=== PATIENT | female | born 1930 | race Caucasian/White ===

== ENCOUNTER 2019-05-23 22:54 | Emergency (ER) | payer MEDICARE, BC ==
[2019-05-23 23:00] VITALS: RESP 18
[2019-05-24 01:05] LABS: Appearance,Urine Clear (Clear); Bilirubin,Urine Negative (Negative); Blood,Urine Negative (Negative); Color,Urine Light Yellow; Glucose,Urine (UA) Negative (Negative); Ketones,Urine 1+ (Negative); Leukocyte Esterase,Urine Moderate (Negative); Nitrite,Urine Negative (Negative); Protein,Urine Negative (Negative); RBC,Urine 1 /hpf (0-5); Specific Gravity,Urine 1.008 (1.001-1.035); Squamous Epithelial Cell,Urine <1 /hpf (0-4); Urobilinogen,Urine <2.0 mg/dL (<2.0); WBC,Urine 5 /hpf (0-5)
--- NOTE | 2019-05-24 01:10 | ED ---
General Adult HPI - General Chief complaint: Recheck/Abnormal Lab/Rx Stated complaint: High Blood Pressure Time Seen by Provider: 05/23/19 23:02 Source: patient, RN notes reviewed, old records reviewed Mode of arrival: ambulatory Limitations: no limitations - History of Present Illness Initial comments: 88-year-old female patient past medical history of hypothyroidism presents ED chief complaint of hypertension. Patient monitors her blood pressure in a regular basis daily. Patient reports her blood pressure is higher today. Reports that it was 200/100 home. Patient denies any other complaints. Denies any headache, changes in vision, nausea vomiting diarrhea. Denies any chest pain short of breath. Patient presents to ED for evaluation. Systemic: Pt denies fatigue, fever/chills, rash. Pt denies weakness, night sweats, weight loss. Neuro: Pt denies headache, visual disturbances, syncope or pre-syncope. HEENT: Pt denies ocular discharge or irritation, otalgia, rhinorrhea, pharyngitis or notable lymphadenopathy. Cardiopulmonary: Pt denies chest pain, SOB, heart palpitations, dyspnea on exertion. Abdominal/GI: Pt denies abdominal pain, n/v/d. : Pt denies dysuria, burning w/ urination, frequency/urgency. Denies new onset urinary or bowel incontinence. MSK: Pt denies myalgia, loss of strength or function in extremities. Neuro: Pt denies new onset weakness, paresthesias. - Related Data Home Medications Medication Instructions Recorded Confirmed Levothyroxine Sodium [Levoxyl] 50 mcg PO SUTUTH 05/25/15 05/23/19 Levothyroxine Sodium [Levoxyl] 100 mcg PO MOWEFRSA 05/25/15 05/23/19 Lutein 10 mg PO DAILY 05/25/15 05/23/19 Allergies Allergy/AdvReac Type Severity Reaction Status Date / Time No Known Allergies Allergy Verified 05/23/19 23:15 Review of Systems ROS Statement: Those systems with pertinent positive or pertinent negative responses have been documented in the HPI. ROS Other: All systems not noted in ROS Statement are negative. Past Medical History Past Medical History: Thyroid Disorder Additional Past Medical History / Comment(s): macular degeneration History of Any Multi-Drug Resistant Organisms: None Reported Additional Past Surgical History / Comment(s): thyroidectomy Past Psychological History: No Psychological Hx Reported Smoking Status: Former smoker Past Alcohol Use History: Daily Past Drug Use History: None Reported General Exam - General Exam Comments Initial Comments: Constitutional: NAD, AOX3, Pt has pleasant affect. HEENT: NC/AT, trachea midline, neck supple, no lymphadenopathy. Posterior pharynx non erythematous, without exudates. External ears appear normal, without discharge. Mucous membranes moist. Eyes PERRLA, EOM intact. There is no scleral icterus. No pallor noted. Cardiopulmonary: RRR, no murmurs, rubs or gallops, no JVD noted. Lungs CTAB in anterior and posterior montes. No peripheral edema. Abdominal exam: Abdomen soft and non-distended. Abdomen non-tender to palpation in all 4 quadrants. Bowel sounds active in LLQ. No hepatosplenomegaly. No ecchymosis Neuro: CN II-XII intact. No nuchal rigidity. No raccon eyes, no chinchilla sign, no hemotympanum. No cervical spinal tenderness. MSK: No posterior calf tenderness bilaterally, homans sign negative bilaterally. Posterior tibialis and radial pulse +2 bilaterally. Sensation intact in upper and lower extremities. Full active ROM in upper and lower extremities, 5/5 stregnth. 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 Patient will signs the displayed hypertension. Physical exam is acute pathology. Neurologic exam within normal limits 2. Major 0. Patient was offered recommended investigations including CT, laboratory investigations. Patient Paulson all of which except urinalysis. Urinalysis was unremarkable. Patient blood pressure decreased without intervention. Patient will be discharged, follow up with primary care provider for further evaluation. Return to ER physician worsens. Case discussed and pt seen by Dr. Barr. - Lab Data Lab Results 05/24/19 Range/Units 00:01 Urine Color Light Yellow Urine Appearance Clear (Clear) Urine pH 7.0 (5.0-8.0) Ur Specific [place] 1.008 (1.001-1.035) Urine Protein Negative (Negative) Urine Glucose (UA) Negative (Negative) Urine Ketones 1+ H (Negative) Urine Blood Negative (Negative) Urine Nitrite Negative (Negative) Urine Bilirubin Negative (Negative) Urine Urobilinogen <2.0 (<2.0) mg/dL Ur Leukocyte Esterase Moderate H (Negative) Urine RBC 1 (0-5) /hpf Urine WBC 5 (0-5) /hpf Ur Squamous Epith Cells <1 (0-4) /hpf Disposition Clinical Impression: Asymptomatic hypertension Disposition: HOME SELF-CARE Condition: Stable Instructions (If sedation given, give patient instructions): Hypertension (ED) Additional Instructions: Patient to adhere to previously discussed treatment plan and will take medication(s) as directed. Patient to follow up with PCP in 1-2 days. Patient to return to ED if symptoms do not improve. Follow with primary care provider tomorrow. Return to ER physician worsens. Is patient prescribed a controlled substance at d/c from ED?: No Referrals: Earl Bahsir DO [Primary Care Provider] - 1-2 days
[2019-05-24 01:25] VITALS: BP 185/93; PULSE 62; TEMP 98
== END 2019-05-24 01:27 | disposition home or self-care (01) ==
LOC: EC 22:54
DX: I10 Essential (primary) hypertension (principal); E03.9 Hypothyroidism, unspecified; H35.30 Unspecified macular degeneration; Z79.890 Hormone replacement therapy; Z79.899 Other long term (current) drug therapy; Z87.891 Personal history of nicotine dependence; Z90.89 Acquired absence of other organs
CPT/HCPCS: 81001; 87086; 99284

== ENCOUNTER 2020-06-14 20:28 | Observation (INO) | payer MEDICARE, BC ==
[2020-06-14 21:02] LABS: Basophils # (A) 0.1 k/uL (0-0.2); Basophils % (A) 1 %; Eosinophils # (A) 0.2 k/uL (0-0.7); Eosinophils % (A) 3 %; HCT 40.2 % (34.0-46.0); HGB 13.5 gm/dL (11.4-16.0); Lymphocytes # (A) 1.3 k/uL (1.0-4.8); Lymphocytes % (A) 17 %; MCH 31.1 pg (25.0-35.0); MCHC 33.5 g/dL (31.0-37.0); MCV 92.6 fL (80.0-100.0); Mean Platelet Volume 7.2; Monocytes # (A) 0.5 k/uL (0-1.0); Monocytes % (A) 6 %; Neutrophils # (A) 5.3 k/uL (1.3-7.7); Neutrophils % (A) 71 %; Platelet Count 192 k/uL (150-450); RBC 4.34 m/uL (3.80-5.40); RDW 12.6 % (11.5-15.5); WBC 7.5 k/uL (3.8-10.6)
[2020-06-14 21:09] LABS: ALT 37 U/L (4-34); AST 35 U/L (14-36); African American GFR (CKD) >90 (>60 ml/min/1.73 sqM); Albumin 4.3 g/dL (3.5-5.0); Alkaline Phosphatase 76 U/L (38-126); Anion Gap 7 mmol/L; Blood Urea Nitrogen 14 mg/dL (7-17); Calcium 8.8 mg/dL (8.4-10.2); Carbon Dioxide 26 mmol/L (22-30); Chloride 97 mmol/L (98-107); Glucose 109 mg/dL (74-99); Magnesium 2.1 mg/dL (1.6-2.3); Non-African American GFR(CKD) 83 (>60 ml/min/1.73 sqM); Sodium 130 mmol/L (137-145); Total Bilirubin 0.6 mg/dL (0.2-1.3); Total Protein 6.6 g/dL (6.3-8.2)
[2020-06-14 21:29] LABS: Partial Thromboplastin Time 23.8 sec (22.0-30.0); Prothrombin Time 10.6 sec (9.0-12.0)
[2020-06-14] MEDS ORDERED: NALOXONE 0.4 MG/ML 1 ML VIAL IV PRN (21:33)
--- NOTE | 2020-06-14 21:39 | ED ---
Chest Pain HPI - General Source: EMS Mode of arrival: EMS Limitations: no limitations <Yoselin Hauser - Last Filed: 06/14/20 22:03> <Ellyn Cortes - Last Filed: 06/18/20 23:27> - General Chief Complaint: Chest Pain Stated Complaint: chest pain Time Seen by Provider: 06/14/20 20:47 - History of Present Illness Initial Comments: a 9-year-old female presenting today for chief complaint of episode of chest pain that began at 7 PM. Patient states at 7 PM she had a aching throbbing chest pain. She states that it was in the middle to left side of her chest. She states she has no history of chest pain she has no history of coronary artery disease or heart issues that she is aware of. She sits a few weeks ago she was diagnosed with hypertension and prescribed for pills. Patient denies diabetes she states she had a previous smoking history 60 years ago for about 10 years. Patient denies any jaw pain arm pain and paresthesias she denies any presyncope ripping tearing back pain or pain with deep inspiration she denies any leg swelling or active cancer. Patient states that the onset of the chest pain she did take one day or 325 mg aspirin. Patient sates she was given a nitroglycerin en route. Patient states that the pain had been subsided since she arrived in the emergency department. She has no additional complaints upon arrival patient appears well she is in good spirits symptom free. (Yoselin Hauser) - Related Data Home Medications Medication Instructions Recorded Confirmed Levothyroxine Sodium [Levoxyl] 100 mcg PO MOWEFRSA@0600 05/25/15 06/16/20 Lutein 10 mg PO DAILY@1300 05/25/15 06/16/20 Losartan Potassium 100 mg PO DAILY@0830 06/14/20 06/16/20 amLODIPine [Norvasc] 10 mg PO DAILY@0906/14/20 06/16/20 Levothyroxine Sodium [Levoxyl] 50 mcg PO SUTUTH@0606/16/20 06/16/20 Previous Rx's Medication Instructions Recorded Metoprolol Tartrate [Lopressor] 25 mg PO BID #60 tab 06/18/20 hydrALAZINE HCL [Apresoline] 50 mg PO TID #90 tab 06/18/20 Allergies Allergy/AdvReac Type Severity Reaction Status Date / Time No Known Allergies Allergy Verified 06/16/20 15:22 Review of Systems ROS Other: All systems not noted in ROS Statement are negative. <JustinjuanYoselin L - Last Filed: 06/14/20 22:03> ROS Other: All systems not noted in ROS Statement are negative. <Ellyn Cortes - Last Filed: 06/18/20 23:27> ROS Statement: Those systems with pertinent positive or pertinent negative responses have been documented in the HPI. EKG Findings - EKG Comments: EKG Findings:: ventricular rate 50 bpm, WA interval 172 ms, QRS duration 112 ms, QT/QTC 428/390 ms. This is less bradycardia. There is no specific ST elevation or depression or T-wave inversions. <JustinYoselin martinez - Last Filed: 06/14/20 22:03> Past Medical History Past Medical History: Hypertension, Thyroid Disorder Additional Past Medical History / Comment(s): macular degeneration History of Any Multi-Drug Resistant Organisms: None Reported Past Surgical History: No Surgical Hx Reported Additional Past Surgical History / Comment(s): thyroidectomy Past Psychological History: Anxiety Smoking Status: Never smoker Past Alcohol Use History: Occasional Past Drug Use History: None Reported <Yoselin Hauser - Last Filed: 06/14/20 22:03> General Exam Limitations: no limitations <JustinjuanYoselin L - Last Filed: 06/14/20 22:03> Course Vital Signs 06/14/20 06/14/20 20:31 21:30 Temperature 97.8 F Pulse Rate 54 L 47 L Respiratory 18 18 Rate Blood Pressure 118/91 134/67 O2 Sat by Pulse 97 98 Oximetry Chest Pain MDM <JustinjuanYoselin L - Last Filed: 06/14/20 22:03> <Ellyn Cortes - Last Filed: 06/18/20 23:27> - MDM 89-year-old female presenting today for chief complaint of chest pain resolved on arrival. Patient was given aspirin and nitroglycerin prior to arrival. EKGwith findings. Initial troponin negative. Chest x-ray clear. Patient does have a slight murmur on examination. No leg swelling. She denies sharp pleuritic chest pain. This imaging feel patient is stable to be transferred inpatient for serial troponins and further monitoring on telemetry. Patient agreeable to admission and care plan.Dr. Cortes agreeable to care plan . (Yoselin Hauser) I was available for consultation in the emergency department. The history and physical exam were done by the midlevel provider. I was consulted for this patients care. I reviewed the case with the midlevel provider and based on their presentation of the patient, I agree with the assessment, medical decision making and plan of care as documented. Chart was dictated using [employer] dictation software. Attempts were made to correct any dictation errors however some typographical errors may persist. Patient was seen during a national state of emergency due to the Covid-19 pandemic. (Ellyn Cortes) Disposition Is patient prescribed a controlled substance at d/c from ED?: No Time of Disposition: 21:39 <Yoselin Hauser - Last Filed: 06/14/20 22:03> <Ellyn Cortes - Last Filed: 06/18/20 23:27> Clinical Impression: Chest pain, Hyponatremia Disposition: ADMITTED IP TO THIS HOSP Condition: Stable
--- NOTE | 2020-06-14 22:03 | XR ---
EXAMINATION TYPE: XR chest 2V DATE OF EXAM: 06/14/2020 COMPARISON: 05/25/2015 HISTORY: Chest pain TECHNIQUE: 2 views FINDINGS: There is large hiatal hernia. Heart is enlarged. There is no heart failure. There is minima l pleural reaction left lung base. The right lung is clear. There are chest leads. Bony thorax is int act. IMPRESSION: Mild cardiomegaly. Heart appears increased slightly compared to old exam. Large hiatal he rnia. Minimal pleural fluid or reaction at the left lung base increased compared to old exam.
[2020-06-15] MEDS ORDERED: hydrALAZINE HCL 20 MG/ML 1 ML VIAL IVP PRN
[2020-06-15] MEDS ORDERED: LEVOTHYROXINE 100 MCG TAB PO SCH (06:30)
[2020-06-15 08:02] VITALS: RESP 16; TEMP 97.4
[2020-06-15] MEDS ORDERED: AMINOPHYLLINE 500 MG/20 ML VIAL IV PRN (08:31)
[2020-06-15] MEDS ORDERED: REGADENOSON 0.4 MG/5 ML SYRINGE IV ONE (08:31)
[2020-06-15] MEDS ORDERED: CAFFEINE CITRATE 60 MG/3 ML VIAL IV PRN (08:31)
[2020-06-15] MEDS ORDERED: FAMOTIDINE 20 MG/2 ML VIAL IV SCH (09:00)
[2020-06-15] MEDS ORDERED: amLODIPine 10 MG TAB PO SCH (09:00)
[2020-06-15] MEDS ORDERED: LOSARTAN 50 MG TAB PO SCH (09:00)
[2020-06-15] MEDS ORDERED: hydrALAZINE HCL 25 MG TAB PO SCH (09:00)
[2020-06-15] MEDS ORDERED: hydroCHLOROthiazide 25 MG TAB PO SCH (09:00)
[2020-06-15] MEDS ORDERED: VIT A,C & E-LUTEIN-MINERALS 1 EACH TAB PO SCH (09:00)
[2020-06-15] MEDS ORDERED: HEPARIN SODIUM,PORCINE 5,000 UNIT/ML 1 ML VIAL SQ SCH (09:00)
--- NOTE | 2020-06-15 10:27 | P.CRDCN ---
History of Present Illness Consult date: 06/15/20 Chief complaint: Chest pain History of present illness: This is a very pleasant 89-year-old female patient with a past medical history significant for hypertension presented to the hospital complaining of chest discomfort which she was in her usual state of health yesterday when she was sitting at home and started experiencing discomfort in the epigastric area. She described the discomfort as a tightness without any radiation to the arms or neck or shoulders and without any radiation to the neck or the jaw and without any assistive symptoms of shortness of breath or sweating or dizziness or syncope. During her hospital stay she did have another episode of chest tightness/epigastric discomfort. The EKG showed sinus rhythm without any significant ST or T-wave abnormalities. 3 sets of cardiac enzymes were checked and came in to be unremarkable. Chest x-ray showed no acute abnormalities. She stated that she was seen recently in the office by Dr. Hanks and the plan was to proceed with a stress test. The patient would like the stress test to be done while she is here. Also she was found to be bradycardic and she was on clonid ine as well as Toprol-XL. Both are on hold at this point. I am going to start the patient on hydrochlorothiazide in addition to the current medical regimen to control her blood pressure and also obtain a stress test to rule out severe underlying coronary artery disease. Further recommendation to follow that. Past Medical History Past Medical History: Hypertension, Thyroid Disorder Additional Past Medical History / Comment(s): macular degeneration History of Any Multi-Drug Resistant Organisms: None Reported Past Surgical History: No Surgical Hx Reported Additional Past Surgical History / Comment(s): thyroidectomy Past Anesthesia/Blood Transfusion Reactions: No Reported Reaction Past Psychological History: Anxiety Smoking Status: Former smoker Past Alcohol Use History: Occasional Past Drug Use History: None Reported Medications and Allergies Home Medications Medication Instructions Recorded Confirmed Type Levothyroxine Sodium [Levoxyl] 50 mcg PO SUTUTH 05/25/15 06/14/20 History Levothyroxine Sodium [Levoxyl] 100 mcg PO MOWEFRSA 05/25/15 06/14/20 History Lutein 10 mg PO DAILY 05/25/15 06/14/20 History Losartan Potassium 100 mg PO DAILY 06/14/20 06/14/20 History Metoprolol Succinate (ER) [Toprol 50 mg PO DAILY 06/14/20 06/14/20 History Xl] amLODIPine [Norvasc] 10 mg PO DAILY 06/14/20 06/14/20 History cloNIDine HCL [Catapres] 0.1 mg PO TID 06/14/20 06/14/20 History Allergies Allergy/AdvReac Type Severity Reaction Status Date / Time No Known Allergies Allergy Verified 06/14/20 21:22 Physical Exam Vitals: Vital Signs Temp Pulse Pulse Resp BP BP Pulse Ox 06/15/20 07:58 97.4 F L 44 L 16 160/65 06/15/20 03:00 97.7 F 49 L 162/65 100 06/14/20 22:33 97.5 F L 52 L 161/67 99 06/14/20 21:30 47 L 18 134/67 98 06/14/20 20:31 97.8 F 54 L 18 118/91 97 Intake and Output 06/14/20 06/15/20 06/15/20 22:59 06:59 14:59 Intake Total 0 Output Total 0 0 Balance 0 0 Intake: Oral 0 Output: Urine 0 0 Other: Voiding Method Toilet # Voids 0 0 Weight 64.41 kg - Constitutional General appearance: no acute distress - Respiratory Respiratory: bilateral: CTA - Cardiovascular Rhythm: regular Heart sounds: normal: S1, S2 Results 06/14/20 20:51 06/14/20 20:51 Cardiac Enzymes 06/14/20 06/14/20 06/15/20 Range/Units 20:51 20:51 00:58 AST 35 (14-36) U/L Troponin I <0.012 <0.012 (0.000-0.034) ng/mL 06/15/20 Range/Units 03:28 AST (14-36) U/L Troponin I <0.012 (0.000-0.034) ng/mL Coagulation 06/14/20 Range/Units 20:51 PT 10.6 (9.0-12.0) sec APTT 23.8 (22.0-30.0) sec CBC 06/14/20 Range/Units 20:51 WBC 7.5 (3.8-10.6) k/uL RBC 4.34 (3.80-5.40) m/uL Hgb 13.5 (11.4-16.0) gm/dL Hct 40.2 (34.0-46.0) % Plt Count 192 (150-450) k/uL Comprehensive Metabolic Panel 06/14/20 Range/Units 20:51 Sodium 130 L (137-145) mmol/L Potassium 4.0 (3.5-5.1) mmol/L Chloride 97 L (98-107) mmol/L Carbon Dioxide 26 (22-30) mmol/L BUN 14 (7-17) mg/dL Creatinine 0.59 (0.52-1.04) mg/dL Glucose 109 H (74-99) mg/dL Calcium 8.8 (8.4-10.2) mg/dL AST 35 (14-36) U/L ALT 37 H (4-34) U/L Alkaline Phosphatase 76 (38-126) U/L Total Protein 6.6 (6.3-8.2) g/dL Albumin 4.3 (3.5-5.0) g/dL Current Medications Generic Name Dose Route Start Last Admin Trade Name Freq PRN Reason Stop Dose Admin Aminophylline 100 mg 06/15/20 08:31 Aminophylline IV ONCE PRN Patient Response Amlodipine Besylate 10 mg 06/15/20 09:00 Norvasc PO DAILY NAKUL Caffeine Citrate 60 mg 06/15/20 08:31 Cafcit Inj IV 06/16/20 08:32 ONCE PRN Patient Response Famotidine 20 mg 06/15/20 09:00 Pepcid IV Q12HR NAKUL Heparin Sodium (Porcine) 5,000 unit 06/15/20 09:00 Heparin SQ Q12HR NAKUL Hydralazine HCl 10 mg 06/15/20 00:00 Apresoline IVP Q6HR PRN Blood Pressure - High Hydrochlorothiazide 25 mg 06/15/20 09:00 Hydrodiuril PO DAILY NAKUL Levothyroxine Sodium 50 mcg 06/17/20 06:30 Synthroid PO SuTuTh@0630 NAKUL Levothyroxine Sodium 100 mcg 06/15/20 06:30 06/15/20 06:05 Synthroid PO 100 mcg MoWeFrSa@0630 NAKUL Administration Losartan Potassium 100 mg 06/15/20 09:00 Cozaar PO DAILY [facility] Multivitamins/Minerals 1 each 06/15/20 09:00 Ivite PO DAILY NAKUL Naloxone HCl 0.2 mg 06/14/20 21:33 Narcan IV Q2M PRN Opioid Reversal Intake and Output 06/14/20 06/15/20 06/15/20 22:59 06:59 14:59 Intake Total 0 Output Total 0 0 Balance 0 0 Intake: Oral 0 Output: Urine 0 0 Other: Voiding Method Toilet # Voids 0 0 Weight 64.41 kg 06/14/20 20:51 06/14/20 20:51 Assessment and Plan Assessment: Assessment #1 atypical chest discomfort #2 sinus bradycardia #3 hypertension Plan #1 acute coronary event was ruled out #2 rule out severe underlying coronary artery disease. #3 obtaining a stress test #4 continue holding the Toprol-XL as well as clonidine #5 add hydrochlorothiazide #6 follow-up with the patient
[2020-06-15 12:03] VITALS: BP 160/78; PULSE 52
--- NOTE | 2020-06-15 12:33 | NM ---
EXAMINATION TYPE: NM stress lexiscan cardiolite DATE OF EXAM: 06/15/2020 COMPARISON: NONE HISTORY: Precordial chest pain and abnormal EKG. TECHNIQUE: After the intravenous administration of 9.7 mCi Tc 99m Sestamibi - Cardiolite resting SPE CT images acquired 45 minutes post injection. The patient received 0.4mg Lexiscan, 23.4 mCi Tc 99m Sestamibi - Stress images obtained [address] injection FINDINGS: Review of stress and rest SPECT images demonstrates no distinct perfusion abnormality. Gated analysi s shows normal wall motion with an estimated left ventricular ejection fraction of 72 %. IMPRESSION: No scintigraphic evidence for reversible ischemia.
--- NOTE | 2020-06-15 12:36 | P.HPIM ---
History of Present Illness This is a pleasant 89 years old female with past medical history of hypertension, hypothyroidism. She follows up with Dr. Hanks and Dr. Bashir. Presents because of chest discomfort. Patient states that she does not have chest pain but she had a spot in the middle of her chest anteriorly that felt [place], like pulsating or lack feeling the beat of her heart, even she can describe it with hesitation as palpitation, it lasted for about one hour and a half. She had little shortness of breath and all these are resolved now. She denies dizziness, no vomiting or sweating. She denies smoking or illicit tracts, she drinks 1 couple beers occasionally. Vitas looks stable, heart rate on the low side 4952. Blood pressure 162/65. Labs are unremarkable except for mild hyponatremia sodium 1:30, rest of the BMP, liver enzymes, CBC is unremarkable, sclera troponins are negative. Chest x-ray: No acute process per Radiologist. Large hiatal hernia EKG: Showing sinus bradycardia at 50 bpm, no significant ST-T changes Patient was not started on new medication and emergency room Review of Systems CONSTITUTIONAL: No fever, no malaise, no fatigue. HEENT: No recent visual problems or hearing problems. Denied any sore throat. CARDIOVASCULAR: No orthopnea, PND, no palpitations, no syncope. PULMONARY: No shortness of breath, no cough, no hemoptysis. GASTROINTESTINAL: No diarrhea, no nausea, no vomiting, no abdominal pain. Normoactive bowel sounds. NEUROLOGICAL: No headaches, no weakness, no numbness. HEMATOLOGICAL: Denies any bleeding or petechiae. GENITOURINARY: Denies any burning micturition, frequency, or urgency. MUSCULOSKELETAL/RHEUMATOLOGICAL: Denies any joint pain, swelling, or any muscle pain. ENDOCRINE: Denies any polyuria or polydipsia. Past Medical History Past Medical History: Hypertension, Thyroid Disorder Additional Past Medical History / Comment(s): macular degeneration History of Any Multi-Drug Resistant Organisms: None Reported Past Surgical History: No Surgical Hx Reported Additional Past Surgical History / Comment(s): thyroidectomy Past Anesthesia/Blood Transfusion Reactions: No Reported Reaction Past Psychological History: Anxiety Smoking Status: Former smoker Past Alcohol Use History: Occasional Past Drug Use History: None Reported Medications and Allergies Home Medications Medication Instructions Recorded Confirmed Type Levothyroxine Sodium [Levoxyl] 50 mcg PO SUTUTH 05/25/15 06/14/20 History Levothyroxine Sodium [Levoxyl] 100 mcg PO MOWEFRSA 05/25/15 06/14/20 History Lutein 10 mg PO DAILY 05/25/15 06/14/20 History Losartan Potassium 100 mg PO DAILY 06/14/20 06/14/20 History Metoprolol Succinate (ER) [Toprol 50 mg PO DAILY 06/14/20 06/14/20 History Xl] amLODIPine [Norvasc] 10 mg PO DAILY 06/14/20 06/14/20 History cloNIDine HCL [Catapres] 0.1 mg PO TID 06/14/20 06/14/20 History Allergies Allergy/AdvReac Type Severity Reaction Status Date / Time No Known Allergies Allergy Verified 06/14/20 21:22 Physical Exam Vitals: Vital Signs Temp Pulse Pulse Resp BP BP Pulse Ox 06/15/20 03:00 97.7 F 49 L 162/65 100 06/14/20 22:33 97.5 F L 52 L 161/67 99 06/14/20 21:30 47 L 18 134/67 98 06/14/20 20:31 97.8 F 54 L 18 118/91 97 Intake and Output 06/14/20 06/15/20 06/15/20 22:59 06:59 14:59 Intake Total 0 Output Total 0 0 Balance 0 0 Intake: Oral 0 Output: Urine 0 0 Other: Voiding Method Toilet # Voids 0 0 Weight 64.41 kg GENERAL: The patient is alert and oriented x3, not in any acute distress. Well developed, well nourished. HEENT: Pupils are round and equally reacting to light. EOMI. No scleral icterus. No conjunctival pallor. Normocephalic, atraumatic. No pharyngeal erythema. No thyromegaly. CARDIOVASCULAR: S1 and S2 present. No murmurs, rubs, or gallops. PULMONARY: Chest is clear to auscultation, no wheezing or crackles. ABDOMEN: Soft, nontender, nondistended, normoactive bowel sounds. No palpable organomegaly. MUSCULOSKELETAL: No joint swelling or deformity. EXTREMITIES: No cyanosis, clubbing, or pedal edema. NEUROLOGICAL: Gross neurological examination did not reveal any focal deficits. SKIN: No rashes. No petechiae Results CBC & Chem 7: 06/14/20 20:51 06/14/20 20:51 Labs: Abnormal Lab Results - Last 24 Hours (Table) 06/14/20 Range/Units 20:51 Sodium 130 L (137-145) mmol/L Chloride 97 L (98-107) mmol/L Glucose 109 H (74-99) mg/dL ALT 37 H (4-34) U/L Thrombosis Risk Factor Assmnt - Choose All That Apply Each Risk Factor Represents 3 Points: Age 75 years or older Thrombosis Risk Factor Assessment Total Risk Factor Score: 3 Thrombosis Risk Factor Assessment Level: Moderate Risk Assessment and Plan Assessment: Chest pain, rule out cardiac causes Sinus bradycardia Hypertension Hypothyroidism Large hiatal hernia Plan: This is a pleasant 89 years old female who presents because of chest pain. Incision troponin, EKG cardiology consult. Follow-up results of stress test recommended by wastewater treatment operator. Hold clonidine and metoprolol. We will double check with wastewater treatment operator about discharge medication Labs and medication were reviewed.. Continue same treatment. Continue with symptomatic treatment. Resume home medication. Monitor lytes and vitals. DVT and GI prophylaxis. Further recommendations of the clinical course of the patient DVT prophylaxis: Subcutaneous heparin GI Prophylaxis: Pepcid
--- NOTE | 2020-06-15 18:38 | ECHOF ---
Referral Reason:cp MEASUREMENTS -------- HEIGHT: 175.3 cm WEIGHT: 64.0 kg BP: RVIDd: 3.1 cm (< 3.3) IVSd: 1.0 cm (0.6 - 1.1) LVIDd: 4.0 cm (3.9 - 5.3) LVPWd: 1.8 cm (0.6 - 1.1) IVSs: 1.4 cm LVIDs: 3.0 cm LVPWs: 1.7 cm LA Diam: 4.7 cm (2.7 - 3.8) LAESV Index (A-L): 42.36 ml/m Ao Diam: 2.4 cm (2.0 - 3.7) AV Cusp: 1.9 cm (1.5 - 2.6) LA Diam: 4.7 cm (2.7 - 3.8) MV EXCURSION: 14.577 mm (> 18.000) MV EF SLOPE: 75 mm/s (70 - 150) EPSS: 0.3 cm MV E Jose: 0.99 m/s MV DecT: 144 ms MV A Jose: 0.52 m/s MV E/A Ratio: 1.90 RAP: 10.00 mmHg RVSP: 45.83 mmHg FINDINGS -------- Sinus rhythm. This was a technically good study. The left ventricular size is normal. Left ventricular wall thickness is normal. Overall left vent ricular systolic function is low-normal with, an EF between 50 - 55 %. The right ventricle is normal in size. The left atrium is markedly dilated. LA is severely dilated >40 ml/m2 The right atrial size is normal. The aortic valve is trileaflet, and appears structurally normal. No aortic stenosis or regurgitation. Mild mitral annular calcification present. Mild mitral regurgitation is present. Oosl-uv-[id number] tricuspid regurgitation present. There is moderate pulmonary hypertension. Trace/mild (physiologic) pulmonic regurgitation. The aortic root size is normal. There is no pericardial effusion. CONCLUSIONS -------- 1. The left ventricular size is normal. 2. Left ventricular wall thickness is normal. 3. Overall left ventricular systolic function is low-normal with, an EF between 50 - 55 %. 4. The right ventricle is normal in size. 5. The left atrium is markedly dilated. 6. LA is severely dilated >40 ml/m2 7. The right atrial size is normal. 8. Mild mitral annular calcification present. 9. Mild mitral regurgitation is present. 10. Igwv-kj-algkjzxy tricuspid regurgitation present. 11. There is moderate pulmonary hypertension. 12. Trace/mild (physiologic) pulmonic regurgitation. NEWS LIBRARY DIRECTOR: Anastasia Singh RDCS
--- NOTE | 2020-06-15 20:13 | EST ---
EXERCISE STRESS AGE: 89 SEX: Female HT: 5'5" WT: 142 PROTOCOL: Lexiscan Cardiolite STAGE: DURATION OF EXERCISE: HEART RATE REST: 50 BLOOD PRESSURE REST: 160/74 MAXIMUM HEART RATE ACHIEVED: 79 MAXIMUM BLOOD PRESSURE: 169/74 85% MPHR: 113 100% MPHR: 133 METS: INDICATIONS: Chest pressure. CLINICAL INFORMATION: STRESS DATA: Heart rate 60, pressure 160/74 mmHg. Baseline EKG showed sinus mechanism. Lexiscan 0.4 mg was given over 15 seconds per protocol. Max heart rate was 79 beats per minute. Maximum pressure was 167/74 mmHg. Clinically the patient did not have any symptoms and the EKG did not show any significant ST or T-wave abnormalities concerning for ischemia. CONCLUSION: 1. Nondiagnostic electrocardiogram stress testing in response to Lexiscan. 2. Please follow up on the Cardiolite. MMODL / IJN: [id number] /
[2020-06-15] MEDS ORDERED: FAMOTIDINE 20 MG TAB PO SCH (21:00)
[2020-06-17] MEDS ORDERED: LEVOTHYROXINE 50 MCG TAB PO SCH (06:30)
== END 2020-06-15 14:24 | disposition home or self-care (01) ==
LOC: EC 20:28 → 3NCARDOBS 21:40
PROVIDERS: ADMIT Hospitalist; ATTEND Hospitalist
DX: R07.89 Other chest pain (principal); I10 Essential (primary) hypertension; F41.9 Anxiety disorder, unspecified; E89.0 Postprocedural hypothyroidism; H35.30 Unspecified macular degeneration; E87.1 Hypo-osmolality and hyponatremia; R06.02 Shortness of breath; K44.9 Diaphragmatic hernia without obstruction or gangrene; R00.1 Bradycardia, unspecified; R10.13 Epigastric pain; Z87.891 Personal history of nicotine dependence; Z79.890 Hormone replacement therapy; Z79.899 Other long term (current) drug therapy
CPT/HCPCS: 93005 ×2; 96372; 99285; 36415; 93017; 93306; 80053; 83735; 84484 ×2; 85025; 85610; 85730; 71046; 78452; G0378 ×2; A9500; J1644; J2785

== ENCOUNTER 2020-06-16 13:24 | Observation (INO) | payer MEDICARE, BC ==
--- NOTE | 2020-06-16 14:12 | ED ---
General Adult HPI - General Chief complaint: Recheck/Abnormal Lab/Rx Stated complaint: Near syncope Time Seen by Provider: 06/16/20 13:36 Source: patient, RN notes reviewed, old records reviewed Mode of arrival: ambulatory Limitations: no limitations - History of Present Illness Initial comments: Patient is a pleasant 89-year-old female presenting to the emergency department for near syncopal episode. Episode occurred just prior to arrival. Patient was standing up and felt like she was going to black out. Patient states it just lasted a couple of seconds and then resolved. Patient is symptom-free at this time. No chest pain. No headache or confusion. No weakness. No history of similar symptoms previously. Patient was recently in the hospital with chest discomfort and was released yesterday. - Related Data Home Medications Medication Instructions Recorded Confirmed Levothyroxine Sodium [Levoxyl] 50 mcg PO SUTUTH 05/25/15 06/14/20 Levothyroxine Sodium [Levoxyl] 100 mcg PO MOWEFRSA 05/25/15 06/14/20 Lutein 10 mg PO DAILY 05/25/15 06/14/20 Losartan Potassium 100 mg PO DAILY 06/14/20 06/14/20 amLODIPine [Norvasc] 10 mg PO DAILY 06/14/20 06/14/20 Previous Rx's Medication Instructions Recorded hydroCHLOROthiazide [Hydrodiuril] 25 mg PO DAILY #30 tab 06/15/20 Allergies Allergy/AdvReac Type Severity Reaction Status Date / Time No Known Allergies Allergy Verified 06/16/20 13:32 Review of Systems ROS Statement: Those systems with pertinent positive or pertinent negative responses have been documented in the HPI. ROS Other: All systems not noted in ROS Statement are negative. Constitutional: Denies: fever Eyes: Denies: eye pain ENT: Denies: ear pain Respiratory: Denies: cough Cardiovascular: Denies: chest pain, palpitations Endocrine: Denies: fatigue Gastrointestinal: Denies: abdominal pain Genitourinary: Denies: dysuria Musculoskeletal: Denies: back pain Skin: Denies: rash Neurological: Denies: weakness Past Medical History Past Medical History: Hypertension, Thyroid Disorder Additional Past Medical History / Comment(s): macular degeneration History of Any Multi-Drug Resistant Organisms: None Reported Past Surgical History: No Surgical Hx Reported Additional Past Surgical History / Comment(s): thyroidectomy Past Anesthesia/Blood Transfusion Reactions: No Reported Reaction Past Psychological History: Anxiety Smoking Status: Former smoker Past Alcohol Use History: Occasional Past Drug Use History: None Reported General Exam Limitations: no limitations General appearance: alert, in no apparent distress Head exam: Present: normocephalic Eye exam: Present: normal appearance, PERRL, EOMI. Absent: nystagmus ENT exam: Present: normal oropharynx Neck exam: Present: normal inspection Respiratory exam: Present: normal lung sounds bilaterally Cardiovascular Exam: Present: regular rate, normal rhythm Expanded Peripheral pulses: 2+: Radial (R), Radial (L), Dorsalis Pedis (R), Dorsalis Pedis (L) GI/Abdominal exam: Present: soft. Absent: tenderness Extremities exam: Present: normal inspection. Absent: pedal edema, calf tenderness Neurological exam: Present: alert, oriented X3, CN II-XII intact. Absent: motor sensory deficit Expanded Neurological exam: Present: protecting the airway Patient oriented to: Present: person, place, time Speech: Present: fluid speech Cranial nerves: EOM's Intact: Normal, Facial Sensation: Normal Sensory exam: Upper Extremity Light Touch: Normal, Lower Extremity Light Touch: Normal Motor strength exam: RUE: 5, LUE: 5, RLE: 5, LLE: 5 Eye Response: (4) open spontaneously Motor Response: (6) obeys commands Verbal Response: (5) oriented Psychiatric exam: Present: normal affect, normal mood Skin exam: Present: normal color Course Vital Signs 06/16/20 06/16/20 06/16/20 13:29 13:43 13:48 Temperature 98.6 F Pulse Rate 78 62 Pulse Rate [ 62 [employer] ] Respiratory 18 18 Rate Blood Pressure 145/87 152/94 O2 Sat by Pulse 95 98 Oximetry - Reevaluation(s) Reevaluation #1: 06/16/20 14:00 Following evaluation I did notice on the monitor patient did have a run of narrow complex tachycardia, lasting at least a couple of seconds however it spontaneously resolved EKG Findings - EKG Comments: EKG Findings:: Sinus bradycardia 59. ID 178. QRS 98. QT 414. QTC 409. Left axis. Q wave in V1. No acute ST change. Medical Decision Making - Medical Decision Making Patient reevaluated and updated. Case was discussed with Dr. rodriguez who will admit covering for Dr. Easley. He does request cardiology consult and metoprolol 25 mg - Lab Data Result diagrams: 06/16/20 14:03 06/16/20 14:03 Lab Results 06/16/20 06/16/20 06/16/20 Range/Units 14:03 14:03 14:03 WBC 7.2 (3.8-10.6) k/uL RBC 4.73 (3.80-5.40) m/uL Hgb 14.6 (11.4-16.0) gm/dL Hct 43.3 (34.0-46.0) % MCV 91.5 (80.0-100.0) fL MCH 30.9 (25.0-35.0) pg MCHC 33.8 (31.0-37.0) g/dL RDW 12.6 (11.5-15.5) % Plt Count 202 (150-450) k/uL Neutrophils % 72 % Lymphocytes % 16 % Monocytes % 7 % Eosinophils % 2 % Basophils % 1 % Neutrophils # 5.2 (1.3-7.7) k/uL Lymphocytes # 1.1 (1.0-4.8) k/uL Monocytes # 0.5 (0-1.0) k/uL Eosinophils # 0.2 (0-0.7) k/uL Basophils # 0.1 (0-0.2) k/uL PT 11.4 (9.0-12.0) sec INR 1.1 (<1.2) APTT 25.4 (22.0-30.0) sec Sodium 130 L (137-145) mmol/L Potassium 3.7 (3.5-5.1) mmol/L Chloride 97 L (98-107) mmol/L Carbon Dioxide 25 (22-30) mmol/L Anion Gap 8 mmol/L BUN 12 (7-17) mg/dL Creatinine 0.59 (0.52-1.04) mg/dL Est GFR (CKD-EPI)AfAm >90 (>60 ml/min/1.73 sqM) Est GFR (CKD-EPI)NonAf 83 (>60 ml/min/1.73 sqM) Glucose 105 H (74-99) mg/dL Calcium 9.3 (8.4-10.2) mg/dL Magnesium 1.9 (1.6-2.3) mg/dL Total Bilirubin 1.1 (0.2-1.3) mg/dL AST 27 (14-36) U/L ALT 26 (4-34) U/L Alkaline Phosphatase 77 (38-126) U/L Troponin I (0.000-0.034) ng/mL Total Protein 7.1 (6.3-8.2) g/dL Albumin 4.7 (3.5-5.0) g/dL TSH 2.960 (0.465-4.680) mIU/L Free T4 2.06 (0.78-2.19) ng/dL Free T3 pg/mL 2.9 (2.8-5.3) pg/ml 06/16/20 Range/Units 14:03 WBC (3.8-10.6) k/uL RBC (3.80-5.40) m/uL Hgb (11.4-16.0) gm/dL Hct (34.0-46.0) % MCV (80.0-100.0) fL MCH (25.0-35.0) pg MCHC (31.0-37.0) g/dL RDW (11.5-15.5) % Plt Count (150-450) k/uL Neutrophils % % Lymphocytes % % Monocytes % % Eosinophils % % Basophils % % Neutrophils # (1.3-7.7) k/uL Lymphocytes # (1.0-4.8) k/uL Monocytes # (0-1.0) k/uL Eosinophils # (0-0.7) k/uL Basophils # (0-0.2) k/uL PT (9.0-12.0) sec INR (<1.2) APTT (22.0-30.0) sec Sodium (137-145) mmol/L Potassium (3.5-5.1) mmol/L Chloride (98-107) mmol/L Carbon Dioxide (22-30) mmol/L Anion Gap mmol/L BUN (7-17) mg/dL Creatinine (0.52-1.04) mg/dL Est GFR (CKD-EPI)AfAm (>60 ml/min/1.73 sqM) Est GFR (CKD-EPI)NonAf (>60 ml/min/1.73 sqM) Glucose (74-99) mg/dL Calcium (8.4-10.2) mg/dL Magnesium (1.6-2.3) mg/dL Total Bilirubin (0.2-1.3) mg/dL AST (14-36) U/L ALT (4-34) U/L Alkaline Phosphatase (38-126) U/L Troponin I <0.012 (0.000-0.034) ng/mL Total Protein (6.3-8.2) g/dL Albumin (3.5-5.0) g/dL TSH (0.465-4.680) mIU/L Free T4 (0.78-2.19) ng/dL Free T3 pg/mL (2.8-5.3) pg/ml - Radiology Data Radiology results: image reviewed Disposition Clinical Impression: Near syncope, Tachycardia Disposition: ADMITTED IP TO THIS HOSP Is patient prescribed a controlled substance at d/c from ED?: No Referrals: Earl Bashir DO [Primary Care Provider] - 1-2 days Decision Time: 14:57
[2020-06-16 14:14] LABS: Basophils # (A) 0.1 k/uL (0-0.2); Basophils % (A) 1 %; Eosinophils # (A) 0.2 k/uL (0-0.7); Eosinophils % (A) 2 %; HCT 43.3 % (34.0-46.0); HGB 14.6 gm/dL (11.4-16.0); Lymphocytes # (A) 1.1 k/uL (1.0-4.8); Lymphocytes % (A) 16 %; MCH 30.9 pg (25.0-35.0); MCHC 33.8 g/dL (31.0-37.0); MCV 91.5 fL (80.0-100.0); Monocytes # (A) 0.5 k/uL (0-1.0); Monocytes % (A) 7 %; Neutrophils # (A) 5.2 k/uL (1.3-7.7); Neutrophils % (A) 72 %; Platelet Count 202 k/uL (150-450); RBC 4.73 m/uL (3.80-5.40); RDW 12.6 % (11.5-15.5); WBC 7.2 k/uL (3.8-10.6)
[2020-06-16 14:21] LABS: ALT 26 U/L (4-34); AST 27 U/L (14-36); African American GFR (CKD) >90 (>60 ml/min/1.73 sqM); Albumin 4.7 g/dL (3.5-5.0); Alkaline Phosphatase 77 U/L (38-126); Anion Gap 8 mmol/L; Blood Urea Nitrogen 12 mg/dL (7-17); Calcium 9.3 mg/dL (8.4-10.2); Carbon Dioxide 25 mmol/L (22-30); Chloride 97 mmol/L (98-107); Glucose 105 mg/dL (74-99); Magnesium 1.9 mg/dL (1.6-2.3); Non-African American GFR(CKD) 83 (>60 ml/min/1.73 sqM); Potassium 3.7 mmol/L (3.5-5.1); Sodium 130 mmol/L (137-145); Total Bilirubin 1.1 mg/dL (0.2-1.3); Total Protein 7.1 g/dL (6.3-8.2)
[2020-06-16 14:25] LABS: INR 1.1 (<1.2); Partial Thromboplastin Time 25.4 sec (22.0-30.0); Prothrombin Time 11.4 sec (9.0-12.0)
[2020-06-16 14:38] LABS: T4, Free (Free Thyroxine) 2.06 ng/dL (0.78-2.19)
[2020-06-16 14:57] LABS: Appearance,Urine Cloudy (Clear); Bilirubin,Urine Negative (Negative); Blood,Urine Negative (Negative); Color,Urine Yellow; Glucose,Urine (UA) Negative (Negative); Hyaline Casts,Urine 1 /lpf (0-2); Ketones,Urine Negative (Negative); Leukocyte Esterase,Urine Large (Negative); Mucus,Urine Rare /hpf; Nitrite,Urine Negative (Negative); PH, Urine 5.5 (5.0-8.0); Protein,Urine Negative (Negative); RBC,Urine 2 /hpf (0-5); Specific Gravity,Urine 1.008 (1.001-1.035); Squamous Epithelial Cell,Urine 1 /hpf (0-4); Urobilinogen,Urine <2.0 mg/dL (<2.0); WBC,Urine 4 /hpf (0-5)
[2020-06-16] MEDS ORDERED: NALOXONE 0.4 MG/ML 1 ML VIAL IV PRN (14:57)
--- NOTE | 2020-06-16 15:11 | XR ---
EXAMINATION TYPE: XR chest 2V DATE OF EXAM: 06/16/2020 COMPARISON: 06/14/2020 HISTORY: Syncope TECHNIQUE: FINDINGS: There is large hiatal hernia. There is no heart failure nor confluent pneumonic infiltrate. There is no definite pleural effusion. Thoracic aorta is intact. There are no hilar masses. There ar e chest leads. There is osteopenia. IMPRESSION: Large hiatal hernia. No active cardiopulmonary disease. Heart appears smaller than old ex am. There is clearing of the minimal pleural reaction left lung base compared to old exam.
--- NOTE | 2020-06-16 20:37 | P.HPIM ---
History of Present Illness This is a pleasant 89 years old female with multiple medical problems as below, presents because her vision got black for about 2 seconds and she felt dizzy while she was standing on the counter everything was black for about 2 seconds, no loss of consciousness or fall and. Patient decided to come to the hospital, she denies chest pain or dyspnea and her vision is back to normal, no more dizziness. In the emergency room she had purulence of narrow complex tachycardia and patient was admitted to the hospital Patient was discharged yesterday from this hospital for chest pain with negative stress test, patient was noticed to be bradycardia and her metoprolol and clonidine were stopped and she was placed on hydrochlorothiazide. She was taken metoprolol 50 mg, we'll start the patient on metoprolol 25 mg and we will ask for cardiology consult Her blood pressure was 189/78, currently 169/77, heart rate around 62, patient is afebrile. The rest of vitals are stable. Unremarkable CBC and BMP except for mild hyponatremia around 1:30. Troponin is negative and throat function test is unremarkable. Chest x-ray showing large hiatal hernia with no active cardiopulmonary disease. EKG shows sinus bradycardia at 59 BPM with no significant ST-T changes Review of Systems CONSTITUTIONAL: No fever, no malaise, no fatigue. HEENT: No recent visual problems or hearing problems. Denied any sore throat. CARDIOVASCULAR: No orthopnea, PND, no palpitations, no syncope. PULMONARY: No shortness of breath, no cough, no hemoptysis. GASTROINTESTINAL: No diarrhea, no nausea, no vomiting, no abdominal pain. Normoactive bowel sounds. NEUROLOGICAL: No headaches, no weakness, no numbness. HEMATOLOGICAL: Denies any bleeding or petechiae. GENITOURINARY: Denies any burning micturition, frequency, or urgency. MUSCULOSKELETAL/RHEUMATOLOGICAL: Denies any joint pain, swelling, or any muscle pain. ENDOCRINE: Denies any polyuria or polydipsia. Past Medical History Past Medical History: Hypertension, Thyroid Disorder Additional Past Medical History / Comment(s): macular degeneration History of Any Multi-Drug Resistant Organisms: None Reported Past Surgical History: No Surgical Hx Reported Additional Past Surgical History / Comment(s): thyroidectomy Past Anesthesia/Blood Transfusion Reactions: No Reported Reaction Past Psychological History: Anxiety Smoking Status: Former smoker Past Alcohol Use History: Occasional Past Drug Use History: None Reported Medications and Allergies Home Medications Medication Instructions Recorded Confirmed Type Levothyroxine Sodium [Levoxyl] 100 mcg PO MOWEFRSA@0600 05/25/15 06/16/20 History Lutein 10 mg PO DAILY@1300 05/25/15 06/16/20 History Losartan Potassium 100 mg PO DAILY@0830 06/14/20 06/16/20 History amLODIPine [Norvasc] 10 mg PO DAILY@0900 06/14/20 06/16/20 History Levothyroxine Sodium [Levoxyl] 50 mcg PO SUTUTH@0606/16/20 06/16/20 History hydroCHLOROthiazide [Hydrodiuril] 25 mg PO DAILY@0806/16/20 06/16/20 History Allergies Allergy/AdvReac Type Severity Reaction Status Date / Time No Known Allergies Allergy Verified 06/16/20 15:22 Physical Exam Vitals: Vital Signs Temp Pulse Pulse Pulse Resp BP BP 06/16/20 16:17 169/77 06/16/20 15:52 62 18 06/16/20 15:49 98.0 F 62 18 189/78 06/16/20 13:48 62 18 152/94 06/16/20 13:43 62 06/16/20 13:29 98.6 F 78 18 145/87 Pulse Ox 06/16/20 16:17 06/16/20 15:52 06/16/20 15:49 97 06/16/20 13:48 98 06/16/20 13:43 06/16/20 13:29 95 Intake and Output 06/16/20 06/16/20 06/16/20 06:59 14:59 22:59 Other: Voiding Method Toilet Weight 64.41 kg 64.41 kg GENERAL: The patient is alert and oriented x3, not in any acute distress. Well developed, well nourished. HEENT: Pupils are round and equally reacting to light. EOMI. No scleral icterus. No conjunctival pallor. Normocephalic, atraumatic. No pharyngeal erythema. No thyromegaly. CARDIOVASCULAR: S1 and S2 present. No murmurs, rubs, or gallops. PULMONARY: Chest is clear to auscultation, no wheezing or crackles. ABDOMEN: Soft, nontender, nondistended, normoactive bowel sounds. No palpable organomegaly. MUSCULOSKELETAL: No joint swelling or deformity. EXTREMITIES: No cyanosis, clubbing, or pedal edema. NEUROLOGICAL: Gross neurological examination did not reveal any focal deficits. SKIN: No rashes. No petechiae Results CBC & Chem 7: 06/16/20 14:03 06/16/20 14:03 Labs: Abnormal Lab Results - Last 24 Hours (Table) 06/16/20 06/16/20 Range/Units 14:03 14:03 Sodium 130 L (137-145) mmol/L Chloride 97 L (98-107) mmol/L Glucose 105 H (74-99) mg/dL Urine Appearance Cloudy H (Clear) Ur Leukocyte Esterase Large H (Negative) Urine Mucus Rare H (None) /hpf Thrombosis Risk Factor Assmnt - Choose All That Apply Any of the Below Risk Factors Present?: No Other Risk Factors: Yes Each Risk Factor Represents 3 Points: Age 75 years or older Other congenital or acquired thrombophilia - If yes, enter type in comment: No Thrombosis Risk Factor Assessment Total Risk Factor Score: 3 Thrombosis Risk Factor Assessment Level: Moderate Risk Assessment and Plan Assessment: Dizziness associated with short period of narrow complex tachycardia Hyponatremia, could be related to diuretic. Stop hydrochlorothiazide Hypertension Hypothyroidism Large hiatal hernia Plan: This is a pleasant 89 years old female who presents with dizziness and short period of tachycardia. Start metoprolol, place patient on telemetry. Cardiology consult Labs and medication were reviewed.. Continue same treatment. Continue with s ymptomatic treatment. Resume home medication. Monitor lytes and vitals. DVT and GI prophylaxis. Further recommendations of the clinical course of the patient DVT prophylaxis: Subcutaneous heparin GI Prophylaxis: Pepcid Prognosis is guarded
[2020-06-16] MEDS: METOPROLOL TARTRATE 25 MG TAB PO SCH (20:40)
[2020-06-16] MEDS: HEPARIN SODIUM,PORCINE 5,000 UNIT/ML 1 ML VIAL SQ SCH (22:14)
[2020-06-17] MEDS ORDERED: LEVOTHYROXINE 50 MCG TAB PO SCH (06:00)
[2020-06-17] MEDS ORDERED: hydroCHLOROthiazide 25 MG TAB PO SCH (08:30)
[2020-06-17] MEDS ORDERED: FAMOTIDINE 20 MG/2 ML VIAL IV SCH (09:00)
[2020-06-17] MEDS: LOSARTAN 50 MG TAB PO SCH (09:07)
[2020-06-17] MEDS: amLODIPine 10 MG TAB PO SCH (09:07)
[2020-06-17] MEDS: HEPARIN SODIUM,PORCINE 5,000 UNIT/ML 1 ML VIAL SQ SCH ×2 (09:09→21:03)
--- NOTE | 2020-06-17 09:44 | P.CRDCN ---
<Lizz Thomas A - Last Filed: 06/17/20 09:40> History of Present Illness Consult date: 06/17/20 Requesting physician: Cristiano Coombs Reason for Consult (text): Near-syncope, review monitor Chief complaint: Syncopal episode History of present illness: History of present illness: This is an 89-year-old female patient of Dr. Hanks with past medical history of hypertension, hypothyroidism. Patient had a recent hospitalization from June 15 which time she was seen by Dr. Marks for epigastric pain the patient did have sinus bradycardia for which clonidine and Toprol were on hold. She underwent a stress Lexiscan that showed no reversible ischemia and patient was discharged home and clonidine and Toprol were discontinued at discharge. Echocardiogram at that time revealed EF of 50-55% with mild mitral regurgitation, [id number] tricuspid regurgitation, moderate pulmonary hypertension. Patient states that she was feeling fine the following day after discharge in the next day she got up she had taken her morning medications about 10 AM about an hour later she hadn't episode where she blacked out for 1-2 seconds. She denies any injuries. She called her son who brought her into the hospital her blood pressure initially 145/73. She had an episode of tachycardia which was brief and self- limiting but otherwise patient has been bradycardic in the 50s and 60s. EKG sinus bradycardia at [address] changes. Chest x-ray reveals large hiatal hernia. No active cardiopulmonary disease. Heart appears smaller than old exam. Clearing of minimal pleural reaction in the left lung base. A CBC was unremarkable. Sodium 130, potassium 3.7, chloride 97, creatinine 0.59. Troponin negative. TSH 2.960. The patient was started on Lopressor 25 mg twice daily by attending and she received 1 dose last evening. The morning dose was held due to bradycardia. Patient denies any further episodes of syncope, presyncope, lightheadedness or dizziness. She has been ambulating in the hallway. She denies having any chest pain or shortness of breath. Review Of Systems: At time of evaluation Constitutional: No fever, no chills. No weakness, fatigue or lethargy. EENT: No headache. Denies dizziness. Lungs: No shortness of breath, cough, no sputum production. No wheezing. Cardiovascular: No chest pain, no lower extremity edema. No palpitations. No paroxysmal nocturnal dyspnea. No orthopnea. No lightheadedness or dizziness. No syncopal episodes. Abdominal: No abdominal pain. No nausea, vomiting. No diarrhea. No constipation. No bloody or tarry stools.. No loss of appetite. Musculoskeletal: No myalgias. No muscle weakness, no gait dysfunction, no frequent falls. Integumentary: No wounds, no lesions. No rash or pruritus. No unusual bruising. Neurologic: No aphasia. No facial droop. No change in mentation. No head injury. Endocrine: No abnormal blood sugars. Physical examination: Gen: This is a 89-year-old female. She is sitting on the edge of the bed and appears to be comfortable and in no acute distress. VS: Afebrile, heart rate 55, blood pressure 163/67 pulse ox 97% on room air. HEENT: Head is atraumatic, normocephalic. Pupils equal, round. Sclerae is anicteric. NECK: Supple. No JVD. No lymphadenopathy. No thyromegaly. LUNGS: Clear to auscultation. No wheezes or rhonchi. No intercostal retractions. HEART: Regular rate and rhythm. No murmur. ABDOMEN: Soft. Bowel sounds are present. No masses. No tenderness. EXTREMITIES: No pedal edema. No calf tenderness. NEUROLOGICAL: Patient is awake, alert and oriented x3. Cranial nerves 2 through 12 are grossly intact. Assessment: Presyncopal episode Episode of tachycardia Bradycardia Hypertension Hypothyroidism Plan: Further recommendations to follow based upon clinical course Thank you kindly for this consultation. Nurse practitioner note has been reviewed, I agree with documented findings and plan of care. Patient was seen and examined. Past Medical History Past Medical History: Hypertension, Thyroid Disorder Additional Past Medical History / Comment(s): macular degeneration History of Any Multi-Drug Resistant Organisms: None Reported Past Surgical History: No Surgical Hx Reported Additional Past Surgical History / Comment(s): thyroidectomy Past Anesthesia/Blood Transfusion Reactions: No Reported Reaction Past Psychological History: Anxiety Smoking Status: Former smoker Past Alcohol Use History: Occasional Past Drug Use History: None Reported Medications and Allergies Home Medications Medication Instructions Recorded Confirmed Type Levothyroxine Sodium [Levoxyl] 100 mcg PO MOWEFRSA@0600 05/25/15 06/16/20 History Lutein 10 mg PO DAILY@1300 05/25/15 06/16/20 History Losartan Potassium 100 mg PO DAILY@82906/14/20 06/16/20 History amLODIPine [Norvasc] 10 mg PO DAILY@89906/14/20 06/16/20 History Levothyroxine Sodium [Levoxyl] 50 mcg PO SUTUTH@0606/16/20 06/16/20 History hydroCHLOROthiazide [Hydrodiuril] 25 mg PO DAILY@82906/16/20 06/16/20 History Allergies Allergy/AdvReac Type Severity Reaction Status Date / Time No Known Allergies Allergy Verified 06/16/20 15:22 Physical Exam Vitals: Vital Signs Temp Pulse Pulse Pulse Resp BP BP 06/17/20 08:33 97.4 F L 55 L 163/67 06/17/20 04:00 97.8 F 52 L 17 162/75 06/16/20 20:35 98.2 F 61 18 166/83 06/16/20 16:17 169/77 06/16/20 15:52 62 18 06/16/20 15:49 98.0 F 62 18 189/78 06/16/20 13:48 62 18 152/94 06/16/20 13:43 62 06/16/20 13:29 98.6 F 78 18 145/87 Pulse Ox 06/17/20 08:33 97 06/17/20 04:00 98 06/16/20 20:35 98 06/16/20 16:17 06/16/20 15:52 06/16/20 15:49 97 06/16/20 13:48 98 06/16/20 13:43 06/16/20 13:29 95 Intake and Output 06/16/20 06/17/20 06/17/20 22:59 06:59 14:59 Other: Voiding Method Toilet Toilet # Voids 1 Weight 64.41 kg Results 06/16/20 14:03 06/16/20 14:03 Cardiac Enzymes 06/16/20 06/16/20 Range/Units 14:03 14:03 AST 27 (14-36) U/L Troponin I <0.012 (0.000-0.034) ng/mL Coagulation 06/16/20 Range/Units 14:03 PT 11.4 (9.0-12.0) sec APTT 25.4 (22.0-30.0) sec CBC 06/16/20 Range/Units 14:03 WBC 7.2 (3.8-10.6) k/uL RBC 4.73 (3.80-5.40) m/uL Hgb 14.6 (11.4-16.0) gm/dL Hct 43.3 (34.0-46.0) % Plt Count 202 (150-450) k/uL Comprehensive Metabolic Panel 06/16/20 Range/Units 14:03 Sodium 130 L (137-145) mmol/L Potassium 3.7 (3.5-5.1) mmol/L Chloride 97 L (98-107) mmol/L Carbon Dioxide 25 (22-30) mmol/L BUN 12 (7-17) mg/dL Creatinine 0.59 (0.52-1.04) mg/dL Glucose 105 H (74-99) mg/dL Calcium 9.3 (8.4-10.2) mg/dL AST 27 (14-36) U/L ALT 26 (4-34) U/L Alkaline Phosphatase 77 (38-126) U/L Total Protein 7.1 (6.3-8.2) g/dL Albumin 4.7 (3.5-5.0) g/dL Current Medications Generic Name Dose Route Start Last Admin Trade Name Charlesq PRN Reason Stop Dose Admin Amlodipine Besylate 10 mg 06/17/20 09:00 06/17/20 09:07 Norvasc PO 10 mg DAILY@0900 [facility] Administration Famotidine 20 mg 06/17/20 09:00 06/17/20 08:37 Pepcid IV Not Given Q12HR [facility] Heparin Sodium (Porcine) 5,000 unit 06/16/20 21:45 06/17/20 09:09 Heparin SQ Not Given Q12HR [facility] Hydrochlorothiazide 25 mg 06/17/20 08:30 06/17/20 09:07 Hydrodiuril PO 25 mg DAILY@0830 [facility] Administration Levothyroxine Sodium 50 mcg 06/17/20 06:00 06/17/20 06:20 Synthroid PO 50 mcg SUTUTH@0600 [facility] Administration Levothyroxine Sodium 100 mcg 06/18/20 06:00 Synthroid PO MOWEFRSA@0600 [facility] Losartan Potassium 100 mg 06/17/20 08:30 06/17/20 09:07 Cozaar PO 100 mg DAILY@0830 [facility] Administration Metoprolol Tartrate 25 mg 06/16/20 21:00 06/16/20 20:40 Lopressor PO 25 mg BID [facility] Administration Naloxone HCl 0.2 mg 06/16/20 14:57 Narcan IV Q2M PRN Opioid Reversal Intake and Output 06/16/20 06/17/20 06/17/20 22:59 06:59 14:59 Other: Voiding Method Toilet Toilet # Voids 1 Weight 64.41 kg 06/16/20 14:03 06/16/20 14:03 <Prasanna Garcia - Last Filed: 06/17/20 12:22> History of Present Illness History of present illness: Patient seen and examined. Patient with much anxiety over recent changes in her blood pressure regimen. Patient notes she was just started on antihypertensives approximately one month ago by Dr. Hanks. She was then seen in the hospital and added hydrochlorothiazide. She took 2 doses of hydrochlorothiazide as prescribed then had an event of losing vision, apparent blacking out and not feeling well however without syncope yesterday. She was found to have hyponatremia on laboratory workup. 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 She also has been having sinus bradycardia in the 50s while sleeping. Overall majority of her issues are her hypertension and some side effects from her antihypertensive regimen. I do not suspect her lightheaded episode was related to an arrhythmia and no evidence of need for pacemaker now. Patient may be followed up with outpatient Holter if there is suspicion. Suspect episode of "blacking out" related to some dehydration from her hydrochlorothiazide. We will discontinue her hydrochlorothiazide and continue her amlodipine, metoprolol, losartan and we will add hydralazine 50 mg 3 times a day. She states she is willing to take medication 3 times a day. Additionally spoke with son regarding when to go to the hospital and when to call the office. All questions were answered. We will give patient a small IV fluid bolus given that she did receive her hydrochlorothiazide and is anxious about going home "dried out". She would like to follow-up with Dr. Marks in the office. Prasanna Garcia D.O. Physical Exam Vitals: Vital Signs Temp Pulse Pulse Pulse Resp BP BP 06/17/20 09:00 55 L 17 06/17/20 08:33 97.4 F L 55 L 163/67 06/17/20 04:00 97.8 F 52 L 17 162/75 06/16/20 20:35 98.2 F 61 18 166/83 06/16/20 16:17 169/77 06/16/20 15:52 62 18 06/16/20 15:49 98.0 F 62 18 189/78 06/16/20 13:48 62 18 152/94 06/16/20 13:43 62 06/16/20 13:29 98.6 F 78 18 145/87 Pulse Ox 06/17/20 09:00 06/17/20 08:33 97 06/17/20 04:00 98 06/16/20 20:35 98 06/16/20 16:17 06/16/20 15:52 06/16/20 15:49 97 06/16/20 13:48 98 06/16/20 13:43 06/16/20 13:29 95 Intake and Output 06/16/20 06/17/20 06/17/20 22:59 06:59 14:59 Other: Voiding Method Toilet Toilet Toilet # Voids 1 Weight 64.41 kg Results 06/16/20 14:03 06/17/20 10:57 Cardiac Enzymes 06/16/20 06/16/20 Range/Units 14:03 14:03 AST 27 (14-36) U/L Troponin I <0.012 (0.000-0.034) ng/mL Coagulation 06/16/20 Range/Units 14:03 PT 11.4 (9.0-12.0) sec APTT 25.4 (22.0-30.0) sec CBC 06/16/20 Range/Units 14:03 WBC 7.2 (3.8-10.6) k/uL RBC 4.73 (3.80-5.40) m/uL Hgb 14.6 (11.4-16.0) gm/dL Hct 43.3 (34.0-46.0) % Plt Count 202 (150-450) k/uL Comprehensive Metabolic Panel 06/16/20 06/17/20 Range/Units 14:03 10:57 Sodium 130 L 133 L (137-145) mmol/L Potassium 3.7 4.1 (3.5-5.1) mmol/L Chloride 97 L 93 L (98-107) mmol/L Carbon Dioxide 25 30 (22-30) mmol/L BUN 12 12 (7-17) mg/dL Creatinine 0.59 0.70 (0.52-1.04) mg/dL Glucose 105 H 118 H (74-99) mg/dL Calcium 9.3 9.5 (8.4-10.2) mg/dL AST 27 (14-36) U/L ALT 26 (4-34) U/L Alkaline Phosphatase 77 (38-126) U/L Total Protein 7.1 (6.3-8.2) g/dL Albumin 4.7 (3.5-5.0) g/dL Current Medications Generic Name Dose Route Start Last Admin Trade Name Freq PRN Reason Stop Dose Admin Amlodipine Besylate 10 mg 06/17/20 09:00 06/17/20 09:07 Norvasc PO 10 mg DAILY@0900 [facility] Administration Famotidine 20 mg 06/17/20 21:00 Pepcid PO Q12HR [facility] Heparin Sodium (Porcine) 5,000 unit 06/16/20 21:45 06/17/20 09:09 Heparin SQ Not Given Q12HR [facility] Sodium Chloride 1,000 mls @ 100 mls/hr 06/17/20 12:15 Saline 0.9% IV 06/17/20 14:44 .Q10H [facility] Levothyroxine Sodium 50 mcg 06/17/20 06:00 06/17/20 06:20 Synthroid PO 50 mcg SUTUTH@0600 [facility] Administration Levothyroxine Sodium 100 mcg 06/18/20 06:00 Synthroid PO MOWEFRSA@0600 [facility] Losartan Potassium 100 mg 06/17/20 08:30 06/17/20 09:07 Cozaar PO 100 mg DAILY@0830 [facility] Administration Metoprolol Tartrate 25 mg 06/16/20 21:00 06/17/20 11:47 Lopressor PO Not Given BID [facility] Naloxone HCl 0.2 mg 06/16/20 14:57 Narcan IV Q2M PRN Opioid Reversal Intake and Output 06/16/20 06/17/20 06/17/20 22:59 06:59 14:59 Other: Voiding Method Toilet Toilet Toilet # Voids 1 Weight 64.41 kg 06/16/20 14:03 06/17/20 10:57
[2020-06-17 11:23] LABS: African American GFR (CKD) >90 (>60 ml/min/1.73 sqM); Anion Gap 10 mmol/L; Blood Urea Nitrogen 12 mg/dL (7-17); Calcium 9.5 mg/dL (8.4-10.2); Carbon Dioxide 30 mmol/L (22-30); Chloride 93 mmol/L (98-107); Glucose 118 mg/dL (74-99); Non-African American GFR(CKD) 78 (>60 ml/min/1.73 sqM); Potassium 4.1 mmol/L (3.5-5.1); Sodium 133 mmol/L (137-145)
[2020-06-17] MEDS: METOPROLOL TARTRATE 25 MG TAB PO SCH ×2 (11:47→22:48)
[2020-06-17] MEDS ORDERED: SODIUM CHLORIDE 0.9% 1,000 ML IV SCH (12:15)
[2020-06-17] MEDS: hydrALAZINE HCL 50 MG TAB PO SCH ×3 (12:41→21:05)
[2020-06-17] MEDS ORDERED: LUTEIN 10 MG PO SCH (13:00)
[2020-06-17] MEDS: FAMOTIDINE 20 MG TAB PO SCH (21:02)
[2020-06-18] MEDS ORDERED: LEVOTHYROXINE 100 MCG TAB PO SCH (06:00)
[2020-06-18 07:51] VITALS: BP 136/68; PULSE 65; RESP 16; TEMP 97.5
[2020-06-18] MEDS: amLODIPine 10 MG TAB PO SCH (08:12)
[2020-06-18] MEDS: LOSARTAN 50 MG TAB PO SCH (08:12)
[2020-06-18] MEDS: FAMOTIDINE 20 MG TAB PO SCH (08:13)
[2020-06-18] MEDS: METOPROLOL TARTRATE 25 MG TAB PO SCH ×2 (08:15→08:17)
[2020-06-18] MEDS: hydrALAZINE HCL 50 MG TAB PO SCH (08:16)
[2020-06-18] MEDS: HEPARIN SODIUM,PORCINE 5,000 UNIT/ML 1 ML VIAL SQ SCH (08:18)
--- NOTE | 2020-06-18 10:39 | PN ---
PROGRESS NOTE Mrs. Still is an 89-year-old female who follows with Dr. Hanks, has a history of hypertension. Was noted to be having episode of bradycardia and she was on clonidine and Toprol. She has underwent a myocardial perfusion imaging as an outpatient, revealed no evidence of inducible ischemia. She has a preserved systolic function. She had an episode of nausea early this morning when she went to the bathroom, but otherwise she is feeling well. Her breathing has been stable. She denies any symptoms of chest discomfort. She denies any dizziness or palpitation. She continues to be at this time on amlodipine 10 mg daily, hydralazine 50 mg 3 times a day, losartan 100 mg daily, metoprolol tartrate 25 mg twice a day. PHYSICAL EXAMINATION: Blood pressure running in the 130s with a heart rate in the 50s. LUNGS: Clear. HEART: Regular rate and rhythm, S1, S2. No S3. No rub. ABDOMEN: Soft, nontender. EXTREMITIES: No edema. LAB DATA: Revealed BUN and creatinine 12 and 0.7, potassium 4.1. IMPRESSION: 1. Hypertension under better control at this time, stable. 2. Dizziness, could be related to the clonidine, improved. 3. Bradycardia, resolved. 4. History of hypothyroidism. RECOMMENDATION: From the cardiac standpoint, she is stable. Will continue to increase her activity. I would expect she should be able to be discharged home soon and follow as an outpatient. MIMI / PARAG: [id number] /
== END 2020-06-18 11:45 | disposition home or self-care (01) ==
LOC: EC 13:24 → 3NCARDOBS 14:57
PROVIDERS: ADMIT Internal Medicine; ATTEND Internal Medicine
DX: R55 Syncope and collapse (principal); I10 Essential (primary) hypertension; E03.9 Hypothyroidism, unspecified; I47.1 Supraventricular tachycardia; I08.1 Rheumatic disorders of both mitral and tricuspid valves; I27.20 Pulmonary hypertension, unspecified; R00.1 Bradycardia, unspecified; H35.30 Unspecified macular degeneration; Z87.891 Personal history of nicotine dependence; F41.9 Anxiety disorder, unspecified; E87.1 Hypo-osmolality and hyponatremia; K44.9 Diaphragmatic hernia without obstruction or gangrene; E89.0 Postprocedural hypothyroidism; Z79.890 Hormone replacement therapy; Z79.899 Other long term (current) drug therapy
CPT/HCPCS: 93005 ×2; 96372 ×2; 99285; 36415; 84439; 84481; 80053; 80048; 83735; 84443; 84484; 85025; 85610; 85730; 81001; 71046; G0378 ×3; J1644 ×2

== ENCOUNTER 2020-07-01 15:26 | Inpatient (IN) | payer MEDICARE, BC ==
[2020-07-01] MEDS ORDERED: ACETAMINOPHEN TAB 500 MG TAB PO STA (16:00)
[2020-07-01] MEDS: SODIUM CHLORIDE 0.9% 500 ML 500 ML IV SCH ×4 (16:29→19:59)
[2020-07-01 16:36] LABS: Basophils % (A) 0 %; Eosinophils # (A) 0.1 k/uL (0-0.7); Eosinophils % (A) 1 %; HCT 39.9 % (34.0-46.0); HGB 13.8 gm/dL (11.4-16.0); Lymphocytes # (A) 0.2 k/uL (1.0-4.8); Lymphocytes % (A) 4 %; MCH 32.1 pg (25.0-35.0); MCHC 34.6 g/dL (31.0-37.0); MCV 92.8 fL (80.0-100.0); Monocytes # (A) 0.3 k/uL (0-1.0); Monocytes % (A) 4 %; Neutrophils # (A) 5.6 k/uL (1.3-7.7); Neutrophils % (A) 90 %; Platelet Count 148 k/uL (150-450); RDW 12.9 % (11.5-15.5); WBC 6.3 k/uL (3.8-10.6)
[2020-07-01 16:51] LABS: ALT 67 U/L (4-34); AST 97 U/L (14-36); African American GFR (CKD) >90 (>60 ml/min/1.73 sqM); Albumin 3.7 g/dL (3.5-5.0); Alkaline Phosphatase 79 U/L (38-126); Anion Gap 7 mmol/L; Blood Urea Nitrogen 14 mg/dL (7-17); Calcium 8.6 mg/dL (8.4-10.2); Carbon Dioxide 26 mmol/L (22-30); Chloride 95 mmol/L (98-107); Creatine Kinase 276 U/L (30-135); Glucose 128 mg/dL (74-99); Non-African American GFR(CKD) 79 (>60 ml/min/1.73 sqM); Potassium 4.1 mmol/L (3.5-5.1); Sodium 128 mmol/L (137-145); Total Bilirubin 0.9 mg/dL (0.2-1.3); Total Protein 6.1 g/dL (6.3-8.2)
--- NOTE | 2020-07-01 16:54 | XR ---
EXAMINATION TYPE: XR chest 2V DATE OF EXAM: 07/01/2020 COMPARISON: 06/16/2020 HISTORY: Fever TECHNIQUE: FINDINGS: There is large hiatal hernia. There is no heart failure nor confluent pneumonic infiltrate. There are chest leads. Thoracic aorta is atheromatous. Heart is borderline enlarged. Bony thorax is intact. IMPRESSION: No active cardiopulmonary disease. Large hiatal hernia. No change.
[2020-07-01 16:58] LABS: INR 1.2 (<1.2); Partial Thromboplastin Time 24.8 sec (22.0-30.0); Prothrombin Time 11.9 sec (9.0-12.0)
--- NOTE | 2020-07-01 17:53 | CT ---
EXAMINATION TYPE: CT abdomen pelvis w con DATE OF EXAM: 07/01/2020 COMPARISON: None HISTORY: abdominal pain, nausea CT DLP: 710.8 mGycm Automated exposure control for dose reduction was used. CONTRAST: Performed with IV Contrast, patient injected with 100 mL of Isovue 300. There is some patchy atelectasis at the lung bases. There is small right pleural effusion. Heart is e nlarged. There is no pericardial effusion. There is hiatal hernia. There is small amount of fluid ngozi und the stomach. There is intrathoracic stomach. Gallbladder appears normal. Liver shows no focal defect. The bile ducts are not dilated. Spleen is in tact. There is no evidence of pancreatic mass. There is no adrenal mass. Kidneys show satisfactory contrast opacification. There is no hydronephrosi s. Ureters are not dilated. There is no retroperitoneal adenopathy. Bladder distends smoothly. There is no inguinal hernia. There are scattered sigmoid diverticula. There is no sign of diverticulitis. T here is no free fluid in the pelvis. Uterus is retroverted. There is no evidence of pelvic mass. Appe ndix is not seen. There is no sign of thickened appendix. Lumbar vertebra have normal alignment. There is mild narrowing of disc spaces. There is multilevel mi ld vacuum disc phenomenon. Bony pelvis is intact. There is no evidence of a hip fracture. Hip joint s paces are fairly normal. IMPRESSION: There are a few sigmoid diverticula. No evidence of diverticulitis. There is some infiltrate and atel ectasis at the posterior lung bases. There is intrathoracic stomach. No evidence of a bowel obstructi on.
[2020-07-01] MEDS ORDERED: VANCOMYCIN IV PER PHARMACY 1 EACH MISC MISCELLANE PRN (18:03)
--- NOTE | 2020-07-01 18:04 | ED ---
Weakness HPI - General Chief complaint: Weakness Stated complaint: weakness Time Seen by Provider: 07/01/20 15:35 Source: patient, EMS Mode of arrival: EMS Limitations: no limitations - History of Present Illness Initial comments: The patient is an 89-year-old female with past history of hypertension, thyroid disorder presents emergency department with reported weakness. Patient recently hospitalized for hyponatremia. States that since he's been home she's been weak however got acutely worse today. Patient denies cough, fevers or chills. Admits to nausea without vomiting. No abdominal pain. Denies diarrhea, constipation, melenic stools or hematochezia. No changes in her urination to include dysuria, hematuria or difficulty voiding. Denies any chest pain or shortness of breath. No recent medication changes. No other alleviating, preci pitating or modifying factors - Related Data Home Medications Medication Instructions Recorded Confirmed Levothyroxine Sodium [Levoxyl] 100 mcg PO MOWEFRSA 05/25/15 07/01/20 Levothyroxine Sodium [Levoxyl] 50 mcg PO SUTUTH 06/16/20 07/01/20 Vit A/Vit C/Vit E/Zinc/Copper 1 cap PO DAILY 07/01/20 07/01/20 [ICAPS SOFTGEL] Previous Rx's Medication Instructions Recorded Enoxaparin [Lovenox] 60 mg SQ Q12H #14 syringe 07/05/20 Levofloxacin [Levaquin] 500 mg PO Q24H #3 tab 07/05/20 Warfarin [Coumadin] 5 mg PO DAILY #30 tab 07/05/20 Allergies Allergy/AdvReac Type Severity Reaction Status Date / Time No Known Allergies Allergy Verified 07/01/20 21:53 Review of Systems ROS Statement: Those systems with pertinent positive or pertinent negative responses have been documented in the HPI. ROS Other: All systems not noted in ROS Statement are negative. Past Medical History Past Medical History: Hypertension, Thyroid Disorder Additional Past Medical History / Comment(s): macular degeneration History of Any Multi-Drug Resistant Organisms: None Reported Past Surgical History: No Surgical Hx Reported Additional Past Surgical History / Comment(s): thyroidectomy Past Anesthesia/Blood Transfusion Reactions: No Reported Reaction Past Psychological History: Anxiety Smoking Status: Former smoker Past Alcohol Use History: Occasional Past Drug Use History: None Reported - Past Family History Father History Unknown: Yes General Exam Limitations: no limitations General appearance: alert, in no apparent distress Head exam: Present: atraumatic, normocephalic, normal inspection Eye exam: Present: normal appearance, PERRL, EOMI. Absent: scleral icterus, conjunctival injection, periorbital swelling ENT exam: Present: normal exam, mucous membranes moist Neck exam: Present: normal inspection. Absent: tenderness, meningismus, lymp hadenopathy Respiratory exam: Present: normal lung sounds bilaterally. Absent: respiratory distress, wheezes, rales, rhonchi, stridor Cardiovascular Exam: Present: regular rate, normal rhythm, normal heart sounds. Absent: systolic murmur, diastolic murmur, rubs, gallop, clicks GI/Abdominal exam: Present: soft, tenderness (mild epigastric tenderness), normal bowel sounds. Absent: distended, guarding, rebound, rigid Extremities exam: Present: normal inspection, full ROM, normal capillary refill. Absent: tenderness, pedal edema, joint swelling, calf tenderness Back exam: Present: normal inspection Neurological exam: Present: alert, oriented X3, CN II-XII intact Psychiatric exam: Present: normal mood, flat affect Skin exam: Present: warm, dry, intact, normal color. Absent: rash Course Vital Signs 07/01/20 07/01/20 07/01/20 15:32 18:11 18:46 Temperature 102.7 F H 99.3 F 98.2 F Pulse Rate 64 56 L 51 L Respiratory 18 18 18 Rate Blood Pressure 132/56 103/54 98/49 O2 Sat by Pulse 96 100 96 Oximetry 07/01/20 20:00 Temperature 97.8 F Pulse Rate 50 L Respiratory 16 Rate Blood Pressure 98/48 O2 Sat by Pulse 96 Oximetry EKG Findings - EKG Comments: EKG Findings:: EKG demonstrates a sinus bradycardia with a ventricular rate of 56. MI interval 190. QRS 108. QTC of 49. No acute ST segment elevations or depressions concerning for ischemic changes Medical Decision Making - Medical Decision Making Upon arrival patient was placed into room 23. A thorough history and physical exam was performed. Laboratory studies are conducted. They are remarkable for a sodium of 128. Chest x-ray demonstrates no active cardiopulmonary disease. CT of the patient's abdomen and pelvis demonstrates few sigmoid diverticula. No evidence of diverticulitis. Some infiltrate and atelectasis at the posterior lung bases. Patient is swabbed for Kovic. She was given a dose of Rocephin and vancomycin. Patient is provided with Tylenol for her fever. She is also given her sepsis bolus of fluids. Patient remained in hemodynamically stable condition. She is admitted to [facility]. Discuss case with Lissy who accepted admission. Patient was then transferred to the floor in stable condition - Lab Data Result diagrams: 07/05/20 06:10 07/05/20 06:10 Lab Results 07/01/20 07/01/20 07/01/20 Range/Units 16:09 16:09 16:09 WBC 6.3 (3.8-10.6) k/uL RBC 4.30 (3.80-5.40) m/uL Hgb 13.8 (11.4-16.0) gm/dL Hct 39.9 (34.0-46.0) % MCV 92.8 (80.0-100.0) fL MCH 32.1 (25.0-35.0) pg MCHC 34.6 (31.0-37.0) g/dL RDW 12.9 (11.5-15.5) % Plt Count 148 L (150-450) k/uL Neutrophils % 90 % Lymphocytes % 4 % Monocytes % 4 % Eosinophils % 1 % Basophils % 0 % Neutrophils # 5.6 (1.3-7.7) k/uL Lymphocytes # 0.2 L (1.0-4.8) k/uL Monocytes # 0.3 (0-1.0) k/uL Eosinophils # 0.1 (0-0.7) k/uL Basophils # 0.0 (0-0.2) k/uL PT 11.9 (9.0-12.0) sec INR 1.2 H (<1.2) APTT 24.8 (22.0-30.0) sec Sodium (137-145) mmol/L Potassium (3.5-5.1) mmol/L Chloride (98-107) mmol/L Carbon Dioxide (22-30) mmol/L Anion Gap mmol/L BUN (7-17) mg/dL Creatinine (0.52-1.04) mg/dL Est GFR (CKD-EPI)AfAm (>60 ml/min/1.73 sqM) Est GFR (CKD-EPI)NonAf (>60 ml/min/1.73 sqM) Glucose (74-99) mg/dL Plasma Lactic Acid Bam (0.7-2.0) mmol/L Calcium (8.4-10.2) mg/dL Total Bilirubin (0.2-1.3) mg/dL AST (14-36) U/L ALT (4-34) U/L Alkaline Phosphatase (38-126) U/L Creatine Kinase (30-135) U/L Troponin I (0.000-0.034) ng/mL Total Protein (6.3-8.2) g/dL Albumin (3.5-5.0) g/dL TSH (0.465-4.680) mIU/L Urine Color Yellow Urine Appearance Clear (Clear) Urine pH 5.5 (5.0-8.0) Ur Specific [place] 1.034 (1.001-1.035) Urine Protein 1+ H (Negative) Urine Glucose (UA) Negative (Negative) Urine Ketones Negative (Negative) Urine Blood Negative (Negative) Urine Nitrite Negative (Negative) Urine Bilirubin Negative (Negative) Urine Urobilinogen <2.0 (<2.0) mg/dL Ur Leukocyte Esterase Negative (Negative) Urine RBC 4 (0-5) /hpf Urine WBC 5 (0-5) /hpf Ur Squamous Epith Cells <1 (0-4) /hpf Urine Bacteria Rare H (None) /hpf Urine Mucus Rare H (None) /hpf Coronavirus (PCR) (Not Detected) 07/01/20 07/01/20 07/01/20 Range/Units 16:09 16:09 16:09 WBC (3.8-10.6) k/uL RBC (3.80-5.40) m/uL Hgb (11.4-16.0) gm/dL Hct (34.0-46.0) % MCV (80.0-100.0) fL MCH (25.0-35.0) pg MCHC (31.0-37.0) g/dL RDW (11.5-15.5) % Plt Count (150-450) k/uL Neutrophils % % Lymphocytes % % Monocytes % % Eosinophils % % Basophils % % Neutrophils # (1.3-7.7) k/uL Lymphocytes # (1.0-4.8) k/uL Monocytes # (0-1.0) k/uL Eosinophils # (0-0.7) k/uL Basophils # (0-0.2) k/uL PT (9.0-12.0) sec INR (<1.2) APTT (22.0-30.0) sec Sodium 128 L (137-145) mmol/L Potassium 4.1 (3.5-5.1) mmol/L Chloride 95 L (98-107) mmol/L Carbon Dioxide 26 (22-30) mmol/L Anion Gap 7 mmol/L BUN 14 (7-17) mg/dL Creatinine 0.69 (0.52-1.04) mg/dL Est GFR (CKD-EPI)AfAm >90 (>60 ml/min/1.73 sqM) Est GFR (CKD-EPI)NonAf 79 (>60 ml/min/1.73 sqM) Glucose 128 H (74-99) mg/dL Plasma Lactic Acid Bam 1.7 (0.7-2.0) mmol/L Calcium 8.6 (8.4-10.2) mg/dL Total Bilirubin 0.9 (0.2-1.3) mg/dL AST 97 H (14-36) U/L ALT 67 H (4-34) U/L Alkaline Phosphatase 79 (38-126) U/L Creatine Kinase 276 H (30-135) U/L Troponin I 0.017 (0.000-0.034) ng/mL Total Protein 6.1 L (6.3-8.2) g/dL Albumin 3.7 (3.5-5.0) g/dL TSH 1.450 (0.465-4.680) mIU/L Urine Color Urine Appearance (Clear) Urine pH (5.0-8.0) Ur Specific [place] (1.001-1.035) Urine Protein (Negative) Urine Glucose (UA) (Negative) Urine Ketones (Negative) Urine Blood (Negative) Urine Nitrite (Negative) Urine Bilirubin (Negative) Urine Urobilinogen (<2.0) mg/dL Ur Leukocyte Esterase (Negative) Urine RBC (0-5) /hpf Urine WBC (0-5) /hpf Ur Squamous Epith Cells (0-4) /hpf Urine Bacteria (None) /hpf Urine Mucus (None) /hpf Coronavirus (PCR) (Not Detected) 07/01/20 Range/Units 17:36 WBC (3.8-10.6) k/uL RBC (3.80-5.40) m/uL Hgb (11.4-16.0) gm/dL Hct (34.0-46.0) % MCV (80.0-100.0) fL MCH (25.0-35.0) pg MCHC (31.0-37.0) g/dL RDW (11.5-15.5) % Plt Count (150-450) k/uL Neutrophils % % Lymphocytes % % Monocytes % % Eosinophils % % Basophils % % Neutrophils # (1.3-7.7) k/uL Lymphocytes # (1.0-4.8) k/uL Monocytes # (0-1.0) k/uL Eosinophils # (0-0.7) k/uL Basophils # (0-0.2) k/uL PT (9.0-12.0) sec INR (<1.2) APTT (22.0-30.0) sec Sodium (137-145) mmol/L Potassium (3.5-5.1) mmol/L Chloride (98-107) mmol/L Carbon Dioxide (22-30) mmol/L Anion Gap mmol/L BUN (7-17) mg/dL Creatinine (0.52-1.04) mg/dL Est GFR (CKD-EPI)AfAm (>60 ml/min/1.73 sqM) Est GFR (CKD-EPI)NonAf (>60 ml/min/1.73 sqM) Glucose (74-99) mg/dL Plasma Lactic Acid Bam (0.7-2.0) mmol/L Calcium (8.4-10.2) mg/dL Total Bilirubin (0.2-1.3) mg/dL AST (14-36) U/L ALT (4-34) U/L Alkaline Phosphatase (38-126) U/L Creatine Kinase (30-135) U/L Troponin I (0.000-0.034) ng/mL Total Protein (6.3-8.2) g/dL Albumin (3.5-5.0) g/dL TSH (0.465-4.680) mIU/L Urine Color Urine Appearance (Clear) Urine pH (5.0-8.0) Ur Specific [place] (1.001-1.035) Urine Protein (Negative) Urine Glucose (UA) (Negative) Urine Ketones (Negative) Urine Blood (Negative) Urine Nitrite (Negative) Urine Bilirubin (Negative) Urine Urobilinogen (<2.0) mg/dL Ur Leukocyte Esterase (Negative) Urine RBC (0-5) /hpf Urine WBC (0-5) /hpf Ur Squamous Epith Cells (0-4) /hpf Urine Bacteria (None) /hpf Urine Mucus (None) /hpf Coronavirus (PCR) Not Detected (Not Detected) Disposition Clinical Impression: Hyponatremia, Fever, Pneumonia Disposition: ADMITTED IP TO THIS [facility] Condition: Stable Is patient prescribed a controlled substance at d/c from ED?: No Decision to Admit Reason: Admit from EC Decision Date: 07/01/20 Decision Time: 18:04
[2020-07-01] MEDS ORDERED: ONDANSETRON 4 MG/2 ML VIAL IVP PRN (18:06)
[2020-07-01] MEDS ORDERED: NALOXONE 0.4 MG/ML 1 ML VIAL IV PRN (18:06)
[2020-07-01] MEDS ORDERED: VANCOMYCIN 1,250 MG in SODIUM CHLORIDE 0.9% 250 ML IVPB ONE (18:30)
[2020-07-01 18:41] LABS: Appearance,Urine Clear (Clear); Bacteria,Urine Rare /hpf; Bilirubin,Urine Negative (Negative); Blood,Urine Negative (Negative); Color,Urine Yellow; Glucose,Urine (UA) Negative (Negative); Ketones,Urine Negative (Negative); Leukocyte Esterase,Urine Negative (Negative); Mucus,Urine Rare /hpf; Nitrite,Urine Negative (Negative); PH, Urine 5.5 (5.0-8.0); Protein,Urine 1+ (Negative); RBC,Urine 4 /hpf (0-5); Specific Gravity,Urine 1.034 (1.001-1.035); Squamous Epithelial Cell,Urine <1 /hpf (0-4); Urobilinogen,Urine <2.0 mg/dL (<2.0); WBC,Urine 5 /hpf (0-5)
[2020-07-01] MEDS: SODIUM CHLORIDE 0.9% 1,000 ML IV SCH (18:43)
[2020-07-01] MEDS: HEPARIN SODIUM,PORCINE 5,000 UNIT/ML 1 ML VIAL SQ SCH (21:26)
[2020-07-01] MEDS: PANTOPRAZOLE 40 MG/10 ML VIAL IVP SCH (21:28)
[2020-07-02 03:17] LABS: Glucose,Whole Blood 95 mg/dL (75-99)
[2020-07-02] MEDS: ACETAMINOPHEN TAB 325 MG TAB PO PRN ×2 (03:19→21:02)
--- NOTE | 2020-07-02 03:36 | XR ---
EXAMINATION TYPE: XR chest 1V portable DATE OF EXAM: 07/02/2020 COMPARISON: Yesterday HISTORY: Short of breath TECHNIQUE: FINDINGS: Heart is enlarged. There is large hiatal hernia. There is mild pulmonary congestion. Thorac ic aorta is atheromatous. There are chest leads. There is some blunting of the costophrenic angles. IMPRESSION: There is probably mild heart failure that is increased compared to yesterday. Small pleur al effusions increased.
[2020-07-02] MEDS ORDERED: FUROSEMIDE 10 MG/ML 2 ML VIAL IV ONE (03:38)
[2020-07-02] MEDS ORDERED: FUROSEMIDE 10 MG/ML 4 ML VIAL ONE (03:39)
[2020-07-02 03:42] LABS: Basophils % (A) 0 %; Eosinophils # (A) 0.1 k/uL (0-0.7); Eosinophils % (A) 2 %; HCT 39.2 % (34.0-46.0); Lymphocytes # (A) 0.4 k/uL (1.0-4.8); Lymphocytes % (A) 6 %; MCH 31.2 pg (25.0-35.0); MCHC 33.1 g/dL (31.0-37.0); MCV 94.5 fL (80.0-100.0); Mean Platelet Volume 7.9; Monocytes # (A) 0.3 k/uL (0-1.0); Monocytes % (A) 4 %; Neutrophils # (A) 5.5 k/uL (1.3-7.7); Neutrophils % (A) 87 %; Platelet Count 141 k/uL (150-450); RBC 4.15 m/uL (3.80-5.40); RDW 13.1 % (11.5-15.5); WBC 6.3 k/uL (3.8-10.6)
[2020-07-02 04:11] LABS: ALT 138 U/L (4-34); AST 194 U/L (14-36); African American GFR (CKD) >90 (>60 ml/min/1.73 sqM); Albumin 3.3 g/dL (3.5-5.0); Alkaline Phosphatase 111 U/L (38-126); Anion Gap 8 mmol/L; Blood Urea Nitrogen 15 mg/dL (7-17); Calcium 8.1 mg/dL (8.4-10.2); Carbon Dioxide 21 mmol/L (22-30); Chloride 101 mmol/L (98-107); Glucose 108 mg/dL (74-99); Non-African American GFR(CKD) 83 (>60 ml/min/1.73 sqM); Potassium 4.4 mmol/L (3.5-5.1); Sodium 130 mmol/L (137-145); Total Bilirubin 0.8 mg/dL (0.2-1.3); Total Protein 5.8 g/dL (6.3-8.2)
[2020-07-02] MEDS ORDERED: FUROSEMIDE 10 MG/ML 2 ML VIAL IV STA (04:37)
[2020-07-02] MEDS: LEVOTHYROXINE 100 MCG TAB PO SCH (04:59)
[2020-07-02] MEDS: VANCOMYCIN 1,000 MG in SODIUM CHLORIDE 0.9% 250 ML IVPB SCH ×2 (08:16→20:53)
[2020-07-02] MEDS: PANTOPRAZOLE 40 MG/10 ML VIAL IVP SCH ×2 (08:16→10:18)
[2020-07-02] MEDS: HEPARIN SODIUM,PORCINE 5,000 UNIT/ML 1 ML VIAL SQ SCH (08:17)
[2020-07-02 13:49] LABS: C Reactive Protein 66.7 mg/L (<10.0)
[2020-07-02] MEDS: FUROSEMIDE 10 MG/ML 2 ML VIAL IV SCH ×2 (14:37→20:54)
--- NOTE | 2020-07-02 14:41 | CT ---
EXAMINATION TYPE: CT angio chest DATE OF EXAM: 07/02/2020 COMPARISON: Radiograph 07/02/2020 HISTORY: 89 year-old female shortness of breath, assess for pulmonary embolus TECHNIQUE: Contiguous axial scanning of the chest performed with IV Contrast, patient injected with 1 00 mL of Isovue 300. Coronal/sagittal MIP reconstructions performed. CT DLP: 258.1 mGycm Automated exposure control for dose reduction was used. FINDINGS: Heart is mildly enlarged. No flattening of the interventricular septum. There is some reflux of contr ast into the IVC. Ectatic ascending aorta 3.5 cm. Very direct takeoff of the left vertebral artery directly from the ao rtic arch with mild atherosclerotic arch calcifications. Scattered prominent but nonenlarged mediastinal lymph nodes measuring up to 9 mm. No thoracic lymphad enopathy by CT size criteria. Large caliber to the main right and left pulmonary arteries measuring up to 3.1 cm. There is satisfac tory opacification of the pulmonary to systemic. Exam positive for segmental and subsegmental branch pulmonary emboli within the right middle lobe, re nikki to axial images 88 and 93. Mild overall burden. Trace bilateral pleural effusions. Prominent dependent atelectasis. The atelectatic changes are great est within the left lower lobe. Mild diffuse bronchial wall thickening. Upper lung septal lines. Large hiatal hernia comprising the entire stomach in the lower left chest. Generalized anasarca change. Bones: Mild to moderate degenerative disc disease midthoracic spine. Grade 1 anterolisthesis at T2-T3 . IMPRESSION: 1. EXAM POSITIVE FOR SEGMENTAL AND SUBSEGMENTAL BRANCH, RIGHT MIDDLE LOBE PULMONARY EMBOLI. MILD OVER ALL BURDEN. NO CT EVIDENCE FOR RIGHT HEART STRAIN. 2. ANASARCA CHANGE, CARDIOMEGALY, PULMONARY ARTERIAL HYPERTENSION, SEPTAL LINES, AND TRACE EFFUSIONS. CORRELATE FOR CHF WITH PULMONARY HYPERTENSION AND PULMONARY VASCULAR CONGESTION. 3. PROMINENT ATELECTASIS ADJACENT TO THE TRACE EFFUSIONS, LEFT GREATER THAN RIGHT. 4. LARGE HIATAL HERNIA COMPRISED OF ESSENTIALLY THE ENTIRE STOMACH.
[2020-07-02] MEDS ORDERED: HEPARIN SODIUM,PORCINE 5,000 UNIT/ML 1 ML VIAL IV PRN (15:02)
[2020-07-02] MEDS ORDERED: ALPRAZolam 0.25 MG TAB PO PRN (15:02)
[2020-07-02] MEDS ORDERED: HYDROcodone/APAP 5-325MG 1 EACH TAB PO PRN (15:02)
[2020-07-02] MEDS ORDERED: HYDROmorphone 0.5 MG/0.5 ML SYRINGE IVP PRN (15:02)
[2020-07-02] MEDS ORDERED: HEPARIN SODIUM,PORCINE 10,000 UNIT/ML 1 ML VIAL IV ONE (15:02)
[2020-07-02] MEDS ORDERED: HEPARIN SOD,PORK IN 0.45% NACL 25,000 UNIT in 0.45% NACL 1 250ML.BAG IV SCH (15:15)
--- NOTE | 2020-07-02 15:54 | US ---
EXAMINATION TYPE: US venous doppler duplex LE BI DATE OF EXAM: 07/02/2020 3:02 PM COMPARISON: NONE CLINICAL HISTORY: 89-year-old female rule out DVT. PE SIDE PERFORMED: Bilateral TECHNIQUE: The lower extremity deep venous system is examined utilizing real time linear array sonog darnell with graded compression, doppler sonography and color-flow sonography. VESSELS IMAGED: External Iliac Vein (EIV) Common Femoral Vein Deep Femoral Vein Greater Saphenous Vein * Femoral Vein Popliteal Vein Small Saphenous Vein * Proximal Calf Veins (* superficial vessels) Right Leg: Negative for DVT Left Leg: Negative for DVT IMPRESSION: No evidence for DVT within the bilateral lower extremities imaged from the groin to the upper calves.
--- NOTE | 2020-07-02 16:37 | HP ---
HISTORY AND PHYSICAL DATE OF SERVICE: 07/02/2020 CHIEF COMPLAINT: Generalized weakness. HISTORY OF PRESENT ILLNESS: This 89-year-old woman with a past history of hypertension, hypothyroidism, history of macular degeneration, history of anxiety history of nicotine dependence, being followed by Dr. Earl Bashir in the outpatient setting, was complaining of tiredness and weakness for the past several days. The patient was recently hospitalized for hyponatremia and dizziness. The patient also had a short period of narrow complex tachycardia also. Hydrochlorothiazide was stopped and the patient was sent home. Now the patient is complaining of significant weakness and the patient was apparently having multiple blood pressure medications and blood pressure running low also. Last night A team was called because of the bradycardia and hypotension. The patient needed high-flow oxygen at 5 L, saturating at 94%. There is no history of fever, rigors. No headache, loss of consciousness, seizures at this time. No history of contact with COVID infection. PAST MEDICAL HISTORY: Hypertension, hypothyroidism, macular degeneration, anxiety. MEDICATIONS: Home medications are Levoxyl 100 mcg, Apresoline, Norvasc, Lopressor, losartan, doses are reviewed. ALLERGIES: None. FAMILY HISTORY: No history of heart disease or stroke in the family. SOCIAL HISTORY: Previous history of smoking. Occasional alcohol intake. REVIEW OF SYSTEMS: ENT: No diminished vision. CARDIOVASCULAR SYSTEM: As mentioned earlier. RESPIRATORY: As mentioned earlier. GI: No nausea. : No dysuria. NERVOUS SYSTEM: No numbness or weakness. ALLERGY/IMMUNOLOGY: As mentioned earlier. MUSCULOSKELETAL: No history of diabetes or hypothyroidism. DERMATOLOGY: Negative. RHEUMATOLOGY negative. PSYCHIATRY: As mentioned earlier. PHYSICAL EXAMINATION: Alert oriented x3. Pulse is 52, blood pressure 107/58, respirations 20, temperature 98.5, pulse ox 95% on 5 L. HEENT: Oral mucosa moist. NECK: No jugular venous distention. No lymph node enlargement. CARDIOVASCULAR: S1 and S2. LUNGS: Breath sounds diminished in the bases. Few scattered rhonchi. No crackles. ABDOMEN: Soft, nontender. No mass palpable. LEGS: No edema NERVOUS SYSTEM: Higher functions as mentioned earlier. Moves all 4 limbs. LYMPHATICS: No lymph node palpable in neck, axillae or groin. SKIN: No ulcer, no ulcers. JOINTS: No active deforming arthropathy. LABS: WBC 6.2, hemoglobin 13, platelets 141. Sodium is 130 D-dimer 6.58. AST 194, ALT is 138. The LDH is 805. 6.7. I have ordered a D-dimer which came back positive at 6.58, and subsequently we performed a CT angio showed segmental subsegmental emboli in the right middle lobe and some CHF and large hiatal hernia was also suspected. Lung lesions also noted. ASSESSMENT: 1. Shortness of breath and weakness possible acute pulmonary embolism on the right side. 2. Rule out COVID-19. 3. Elevated LDH and CRP. 4. Elevated AST and ALT. 5. Hyponatremia. 6. Thrombocytopenia. 7. History hypertension. 8. Hypothyroidism. 9. History of macular degeneration. 10.Bradycardia. 11.Relative hypotension. 12.Anxiety. 13.Remote history of nicotine dependence. 14.Full code. RECOMMENDATION: This 89-year-old woman presented with multiple complex medical issues, at this time I recommend to continue current condition, recommend initiate high-dose IV heparin and transfer the patient to telemetry. Obtain cardiology and pulmonology consultations. Recommend ultrasound of the both legs. A 2D echo with Doppler. The BNP is 1550. I would also recommend a small dose of Lasix cautiously. Otherwise, repeat labs. Resume the home medications. Empiric antibiotics. Will hold metoprolol, losartan, hydralazine, and amlodipine at this time. The overall prognosis guarded because of multiple complex medical issues. Further recommendations to follow. MIMI / PARAG: [id number] / MTDD
[2020-07-02 17:40] LABS: Partial Thromboplastin Time 22.6 sec (22.0-30.0); Prothrombin Time 10.8 sec (9.0-12.0)
[2020-07-02 18:01] LABS: Basophils # (A) 0.1 k/uL (0-0.2); Basophils % (A) 1 %; Eosinophils # (A) 0.2 k/uL (0-0.7); Eosinophils % (A) 3 %; HCT 39.7 % (34.0-46.0); Lymphocytes # (A) 0.5 k/uL (1.0-4.8); Lymphocytes % (A) 9 %; MCH 31.5 pg (25.0-35.0); MCHC 32.7 g/dL (31.0-37.0); MCV 96.3 fL (80.0-100.0); Mean Platelet Volume 8.3; Monocytes # (A) 0.3 k/uL (0-1.0); Monocytes % (A) 5 %; Neutrophils # (A) 4.8 k/uL (1.3-7.7); Neutrophils % (A) 80 %; Platelet Count 131 k/uL (150-450); RBC 4.13 m/uL (3.80-5.40); RDW 13.3 % (11.5-15.5)
[2020-07-02] MEDS: SODIUM CHLORIDE 0.9% 1,000 ML IV SCH (18:06)
[2020-07-02] MEDS ORDERED: LEVOFLOXACIN 750MG-D5W PMX 750 MG in DEXTROSE/WATER 1 150ML.BAG IVPB STA (22:56)
--- NOTE | 2020-07-02 23:05 | P.CONS ---
History of Present Illness - Reason for Consult Consult date: 07/02/20 Rule out Covid Requesting physician: Erick Mtz - Chief Complaint Generalized weakness x few days - History of Present Illness Patient is 89 year old female presenting to the ER at [facility] yesterday for evaluation of generalized weakness and no energy the patient's symptom has been getting worse for the last few days before presentation hospital the patient denies having any headache or chest pain shortness of cough patient did have some nausea but no vomiting no diarrhea or dysuria on arrival to the ER the patient did have a fever of 102.7F subsequently spiked a fever of 103F early this morning, patient did have a normal white count with lymphopenia patient UA is negative. Enzymes are mildly elevated as well as CRP patient did have a chest x-ray on admission which was negative for acute cardiopulmonary disease CT abdomen and pelvis and it shows some lower lobe atelectasis subsequently the patient did have CT angiogram of the chest reviewed shows extensive pulmonary emboli pulmonary arterial hypertension probably atelectasis adjacent to the effusion left greater than right with concern for possible Covid 19 infection and fever infectious disease was consulted for further management of antibiotic therapy patient received a dose of Rocephin via and has been continued on vancomycin at this point Review of Systems Positive point has been mentioned in the HPI rest of the systems are negative Past Medical History Past Medical History: Hypertension, Thyroid Disorder Additional Past Medical History / Comment(s): macular degeneration History of Any Multi-Drug Resistant Organisms: None Reported Past Surgical History: No Surgical Hx Reported Additional Past Surgical History / Comment(s): thyroidectomy Past Anesthesia/Blood Transfusion Reactions: No Reported Reaction Past Psychological History: Anxiety Smoking Status: Former smoker Past Alcohol Use History: Occasional Past Drug Use History: None Reported - Past Family History Father History Unknown: Yes Medications and Allergies Home Medications Medication Instructions Recorded Confirmed Type Levothyroxine Sodium [Levoxyl] 100 mcg PO [id number] 05/25/15 07/01/20 History Losartan Potassium 100 mg PO DAILY 06/14/20 07/01/20 History amLODIPine [Norvasc] 10 mg PO DAILY 06/14/20 07/01/20 History Levothyroxine Sodium [Levoxyl] 50 mcg PO SUTUTH 06/16/20 07/01/20 History Metoprolol Tartrate [Lopressor] 25 mg PO BID #60 tab 06/18/20 07/01/20 Rx hydrALAZINE HCL [Apresoline] 50 mg PO TID #90 tab 06/18/20 07/01/20 Rx Vit A/Vit C/Vit E/Zinc/Copper 1 cap PO DAILY 07/01/20 07/01/20 History [ICAPS SOFTGEL] Allergies Allergy/AdvReac Type Severity Reaction Status Date / Time No Known Allergies Allergy Verified 07/01/20 21:53 Physical Exam Vitals: Vital Signs Temp Pulse Resp BP Pulse Ox 07/02/20 15:00 98.6 F 65 16 152/68 97 07/02/20 08:16 52 L 20 07/02/20 08:08 98.5 F 52 L 20 107/58 95 07/02/20 05:07 98.9 F 65 19 110/50 94 L 07/02/20 04:45 20 07/02/20 04:20 92 L 07/02/20 04:16 100.4 F H 65 20 142/55 92 L 07/02/20 04:03 123/56 07/02/20 03:53 132/70 07/02/20 03:46 101.6 F H 66 18 149/63 99 07/02/20 03:18 103.4 F H 07/02/20 03:01 74 170/84 88 L 07/02/20 02:57 76 162/72 90 L 07/02/20 02:53 79 174/113 84 L 07/02/20 02:19 59 L 17 138/63 91 L 07/02/20 00:20 43 L 18 Intake and Output 07/02/20 07/02/20 07/02/20 06:59 14:59 22:59 Intake Total 350 370 Output Total 1050 320 Balance -700 370 -320 Intake: Intake, IV Titration 350 250 Amount Sodium Chloride 0.9% 1, 100 000 ml @ 20 mls/hr IV . Q24H [facility] Rx#:[id number] Vancomycin 1,000 mg In 250 Sodium Chloride 0.9% 250 ml @ 125 mls/hr IVPB Q12HR [facility] Rx#:[id number] Vancomycin 1,250 mg In 250 Sodium Chloride 0.9% 250 ml @ 125 mls/hr IVPB ONCE ONE Rx#:[id number] Oral 120 Output: Urine 1050 320 Other: Voiding Method Toilet Toilet # Voids 0 1 GENERAL DESCRIPTION: An elderly female lying in bed, no distress. No tachypnea or accessory muscle of respiration use. HEENT: Shows Pallor , no scleral icterus. Oral mucous membrane is dry. No pharyngeal erythema or thrush NECK: Trachea central, no thyromegaly. LUNGS: Unlabored breathing. Decreased breath sound at the base. No wheeze or crackle. HEART: S1, S2, regular rate and rhythm. No loud murmur ABDOMEN: Soft, no tenderness , guarding or rigidity, no organomegaly EXTREMITIES: No edema of feet. SKIN: No rash, no masses palpable. NEUROLOGICAL: The patient is awake, alert, oriented x3, mood and affect normal. Results CBC & Chem 7: 07/02/20 17:01 07/02/20 03:26 Labs: Abnormal Lab Results - Last 24 Hours (Table) 07/02/20 07/02/20 07/02/20 Range/Units 03:26 03:26 13:06 Plt Count 141 L (150-450) k/uL Lymphocytes # 0.4 L (1.0-4.8) k/uL D-Dimer (<0.60) mg/L FEU Sodium 130 L (137-145) mmol/L Carbon Dioxide 21 L (22-30) mmol/L Glucose 108 H (74-99) mg/dL Calcium 8.1 L (8.4-10.2) mg/dL AST 194 H (14-36) U/L ALT 138 H (4-34) U/L Lactate Dehydrogenase 805 H (313-618) U/L C-Reactive Protein 66.7 H (<10.0) mg/L Total Protein 5.8 L (6.3-8.2) g/dL Albumin 3.3 L (3.5-5.0) g/dL 07/02/20 07/02/20 Range/Units 13:06 17:01 Plt Count 131 L (150-450) k/uL Lymphocytes # 0.5 L (1.0-4.8) k/uL D-Dimer 6.58 H (<0.60) mg/L FEU Sodium (137-145) mmol/L Carbon Dioxide (22-30) mmol/L Glucose (74-99) mg/dL Calcium (8.4-10.2) mg/dL AST (14-36) U/L ALT (4-34) U/L Lactate Dehydrogenase (313-618) U/L C-Reactive Protein (<10.0) mg/L Total Protein (6.3-8.2) g/dL Albumin (3.5-5.0) g/dL Microbiology - Last 24 Hours (Table) 07/01/20 16:09 Blood Culture - Preliminary Blood No Growth after 24 hours Assessment and Plan Assessment: 1- patient presented to the hospital with generalized weakness in this patient noticed to have a fever likely secondary to bilateral PE as well as suspicious for no more underlying pneumonia especially Covid 19, as there was no evidence of any groundglass opacities and the patient did not have any cough or other symptoms suspicious for covid 19 infection A possible component of atypical bacterial pneumonia is not entirely excluded, (1) Fever Current Visit: Yes Status: Acute Code(s): R50.9 - FEVER, UNSPECIFIED SNOMED Code(s): 307560886 (2) Pneumonia Current Visit: Yes Status: Acute Code(s): J18.9 - PNEUMONIA, UNSPECIFIED ORGANISM SNOMED Code(s): 568525602 Plan: 1- discontinue the vancomycin 2-empirically add Levaquin 3- we will check will Procalcitonin urine for Legionella antigen and nasopharynx for Covid 19 We will follow on clinical condition and cultures to further adjust medication if needed Thank you for this consultation will follow this patient with you Time with Patient: Greater than 30
[2020-07-03] MEDS: LEVOTHYROXINE 50 MCG TAB PO SCH (06:18)
[2020-07-03 08:13] LABS: Basophils % (A) 1 %; Eosinophils # (A) 0.2 k/uL (0-0.7); Eosinophils % (A) 2 %; HCT 36.5 % (34.0-46.0); HGB 11.9 gm/dL (11.4-16.0); Lymphocytes # (A) 0.8 k/uL (1.0-4.8); Lymphocytes % (A) 13 %; MCH 30.4 pg (25.0-35.0); MCHC 32.7 g/dL (31.0-37.0); Mean Platelet Volume 8.1; Monocytes # (A) 0.3 k/uL (0-1.0); Monocytes % (A) 4 %; Neutrophils # (A) 5.1 k/uL (1.3-7.7); Neutrophils % (A) 78 %; Platelet Count 120 k/uL (150-450); RBC 3.92 m/uL (3.80-5.40); WBC 6.5 k/uL (3.8-10.6)
[2020-07-03] MEDS: FUROSEMIDE 10 MG/ML 2 ML VIAL IV SCH (09:10)
[2020-07-03] MEDS: PANTOPRAZOLE 40 MG/10 ML VIAL IVP SCH (09:12)
[2020-07-03] MEDS: VIT A,C & E-LUTEIN-MINERALS 1 EACH TAB PO SCH (09:12)
[2020-07-03 09:20] LABS: African American GFR (CKD) >90 (>60 ml/min/1.73 sqM); Anion Gap 7 mmol/L; Blood Urea Nitrogen 13 mg/dL (7-17); C Reactive Protein 72.7 mg/L (<10.0); Carbon Dioxide 28 mmol/L (22-30); Chloride 93 mmol/L (98-107); Glucose 101 mg/dL (74-99); Non-African American GFR(CKD) 82 (>60 ml/min/1.73 sqM); Potassium 3.6 mmol/L (3.5-5.1); Sodium 128 mmol/L (137-145)
[2020-07-03] MEDS ORDERED: traMADol 50 MG TAB PO PRN (09:46)
--- NOTE | 2020-07-03 10:06 | P.PN ---
Subjective 89-year-old female was admitted secondary to pulmonary embolism, patient is on IV heparin at this time. Patient is still requiring 5 L of falls and patient had an episode of acute respiratory distress after which patient was transferred to stepdown unit. Clinically there is no evidence of CHF and patient is hyponatremic on this can you Lasix. Cardiology will evaluate the patient patient had a normal ejection fraction and recent echocardiogram did patient has mildly elevated liver enzymes etiology of which is not clear will obtain ultrasound of the liver as well as a hepatitis panel. We'll repeat liver enzymes again tomorrow and any his stamina for and-based medications will be discontinued.. Patient doesn't feel good and she feels tired. Constitutional: Denied any fatigue denied any fever. Cardio vascular: denied any chest pain, palpitations Gastrointestinal denied any nausea vomiting Pulmonary: Still short of breath Neurologic denied any new focal deficits All inpatient medications were reviewed and appropriate changes in these medications as dictated in the interval history and assessment and plan. Objective - Vital Signs Vital signs: Vital Signs Temp 99.7 F H 07/03/20 06:21 Pulse 63 07/03/20 04:00 Resp 18 07/03/20 04:00 BP 126/63 07/03/20 04:00 Pulse Ox 92 L 07/03/20 04:00 Intake & Output 07/02/20 07/03/20 07/03/20 18:59 06:59 18:59 Intake Total 370 91.399 52.98 Output Total 840 Balance 370 -748.601 52.98 Weight 71.5 kg Intake: Intake, IV Titration 250 91.399 52.98 Amount Heparin Sod,Pork in 0.45% 91.399 52.98 NaCl 25,000 unit In 0.45 % NaCl 1 250ml.bag @ 18 UNITS/KG/HR 11.594 mls/hr IV .[id number] [facility] Rx#: [id number] Vancomycin 1,000 mg In 250 Sodium Chloride 0.9% 250 ml @ 125 mls/hr IVPB Q12HR [facility] Rx#:[id number] Oral 120 Output: Urine 840 Other: Voiding Method Toilet Bedpan # Voids 1 - Exam PHYSICAL EXAMINATION: GENERAL: The patient is alert and oriented x3, not in any acute distress. Well developed, well nourished. HEENT: Pupils are round and equally reacting to light. EOMI. No scleral icterus. No conjunctival pallor. Normocephalic, atraumatic. No pharyngeal erythema. No thyromegaly. CARDIOVASCULAR: S1 and S2 present. No murmurs, rubs, or gallops. PULMONARY: Chest is clear to auscultation, no wheezing or crackles. ABDOMEN: Soft, nontender, nondistended, normoactive bowel sounds. No palpable organomegaly. MUSCULOSKELETAL: No joint swelling or deformity. EXTREMITIES: No cyanosis, clubbing, or pedal edema. NEUROLOGICAL: Gross neurological examination did not reveal any focal deficits. SKIN: No rashes. - Labs CBC & Chem 7: 07/03/20 07:28 07/03/20 07:28 Labs: Abnormal Lab Results - Last 24 Hours (Table) 07/02/20 07/02/20 07/02/20 Range/Units 13:06 13:06 17:01 Plt Count 131 L (150-450) k/uL Lymphocytes # 0.5 L (1.0-4.8) k/uL APTT (22.0-30.0) sec D-Dimer 6.58 H (<0.60) mg/L FEU Sodium (137-145) mmol/L Chloride (98-107) mmol/L Glucose (74-99) mg/dL Calcium (8.4-10.2) mg/dL Lactate Dehydrogenase 805 H (313-618) U/L C-Reactive Protein 66.7 H (<10.0) mg/L 07/03/20 07/03/20 07/03/20 Range/Units 00:13 07:28 07:28 Plt Count 120 L (150-450) k/uL Lymphocytes # 0.8 L (1.0-4.8) k/uL APTT >200.0 H* (22.0-30.0) sec D-Dimer (<0.60) mg/L FEU Sodium 128 L (137-145) mmol/L Chloride 93 L (98-107) mmol/L Glucose 101 H (74-99) mg/dL Calcium 8.0 L (8.4-10.2) mg/dL Lactate Dehydrogenase (313-618) U/L C-Reactive Protein 72.7 H (<10.0) mg/L 07/03/20 Range/Units 07:28 Plt Count (150-450) k/uL Lymphocytes # (1.0-4.8) k/uL APTT 108.7 H* (22.0-30.0) sec D-Dimer (<0.60) mg/L FEU Sodium (137-145) mmol/L Chloride (98-107) mmol/L Glucose (74-99) mg/dL Calcium (8.4-10.2) mg/dL Lactate Dehydrogenase (313-618) U/L C-Reactive Protein (<10.0) mg/L Microbiology - Last 24 Hours (Table) 07/01/20 16:09 Blood Culture - Preliminary Blood No Growth after 24 hours Assessment and Plan Plan: -Acute hypoxic respiratory failure: Secondary to pulmonary embolism and patient will be continued on IV heparin, pulmonology will evaluate the patient is a possibility of atypical pneumonia possibility of COVID19 is is low and patient is on levofloxacin at this time. -Acute PE -Possible atypical pneumonia -Rule out Covid 19 -Elevated transaminases: Etiology is not clear. Management as mentioned above -Hypovolemic hyponatremia Lasix will discontinued, no clinical evidence of CHF -Hyperthyroidism -Hypertension patient is presently hypotensive antiemesis medications are being held
--- NOTE | 2020-07-03 10:49 | US ---
EXAMINATION TYPE: US gallbladder DATE OF EXAM: 07/03/2020 COMPARISON: CT 2019, US 2016 CLINICAL HISTORY: elevated liver enzymes. Elevated liver enzymes EXAM MEASUREMENTS: Liver Length: 15.7 cm Gallbladder Wall: 0.2 cm CBD: 0.2 cm Right Kidney: 10.8 x 4.7 x 4.6 cm Pancreas: visualized portions wnl, limited by overlying midline bowel gas Liver: wnl Gallbladder: wnl Evidence for sonographic Longoria's sign: no CBD: wnl Right Kidney: wnl IMPRESSION: 1. Unremarkable right upper quadrant ultrasound.
[2020-07-03] MEDS ORDERED: RIVAROXABAN 15 MG TAB PO SCH (11:15)
--- NOTE | 2020-07-03 13:00 | ECHOF ---
Referral Reason:PE MEASUREMENTS -------- HEIGHT: 175.3 cm WEIGHT: 64.4 kg BP: RAP: 10.00 mmHg RVSP: 42.14 mmHg FINDINGS -------- Echo done 06/15/20: Limited study for PE. The left ventricular size is normal. Overall left ventricular systolic function is low-normal with, an EF between 50 - 55 %. The right ventricle is normal in size. Mild tricuspid regurgitation present. There is mild pulmonary hypertension. There is no pericardial effusion. CONCLUSIONS -------- 1. Echo done 06/15/20: Limited study for PE. 2. The left ventricular size is normal. 3. Overall left ventricular systolic function is low-normal with, an EF between 50 - 55 %. 4. The right ventricle is normal in size. 5. Mild tricuspid regurgitation present. 6. There is mild pulmonary hypertension. 7. There is no pericardial effusion. [employer] SUPERVISOR: Anastasia Singh RDCS
[2020-07-03 16:28] LABS: Hepatitis A Antibody IgM Non-Reactive (Non-Reactive); Hepatitis B Core IgM Non-Reactive (Non-Reactive); Hepatitis B Surface Antigen Non-Reactive (Non-Reactive); Hepatitis C IgG Antibody Non-Reactive (Non-Reactive)
[2020-07-03] MEDS ORDERED: HEPARIN SODIUM,PORCINE 5,000 UNIT/ML 1 ML VIAL IV PRN (16:28)
--- NOTE | 2020-07-03 17:10 | CONS ---
CONSULTATION PULMONARY/CRITICAL CARE CONSULTATION: DATE OF SERVICE: 07/03/2020 This is an 89-year-old female who apparently presented to the emergency room on July 01 at 1806 hours. She apparently came in complaining of weakness. The patient denies all other complaints, including fever, chills, cough, phlegm production, shortness of breath, chest pain, chest pressure, nausea, vomiting and diarrhea. She just was profoundly weak at home and decided to be evaluated in the emergency room. In the process of being evaluated, she was discovered to have a pulmonary embolism. The patient will need to be started on an oral blood thinner. Currently she remains on IV heparin. She had Dopplers of the lower extremities which were negative for DVT. She had blood clots in the right lung. She apparently does have a history of hypertension and also hypothyroidism. She does not take a lot of medications for somebody who is 89. Her medications include levothyroxine, losartan, amlodipine, vitamins, metoprolol and Apresoline. ALLERGIES: DENIED. MEDICAL HISTORY: Medical history includes hypertension, hypothyroidism and macular degeneration. She has had no major surgeries recently but did have a thyroidectomy in the distant past. SOCIAL HISTORY: Positive for previous tobacco use. She drinks alcohol occasionally. She denies any illicit drug use. FAMILY HISTORY: Unremarkable. She states her father was healthy. REVIEW OF SYSTEMS: CONSTITUTIONAL: Weakness. NEUROLOGIC: Negative. HEENT: Negative. CARDIOVASCULAR: Negative. PULMONARY: Negative. GI: Negative. : Negative. RHEUMATOLOGIC: Negative. IMMUNOLOGIC: Negative. ENDOCRINOLOGIC: Negative. DERMATOLOGIC: Negative. Because of elevated temperature on admission, she was screened for COVID-19 infection. Her COVID-19 testing was negative. PHYSICAL EXAMINATION: VITAL SIGNS: Current vital signs are reviewed. Temperature is 98.7, heart rate 59, respiratory rate 18, blood pressure 111/56, mean 74, three-liter saturation 97%. GENERAL APPEARANCE: She appears in no acute distress. HEENT: Examination is grossly unremarkable. Nasal oxygen in place. She is on 3 L. NECK: Supple. Full range of motion. No adenopathy. Neck veins are flat. CARDIOVASCULAR: Examination reveals regular rhythm and rate. Heart rate in mid 60s. S1, S2 normal. There is no murmur. LUNGS: Lungs reveal mostly clear breath sounds, a few scattered mild rhonchi. No wheezes or crackles. ABDOMEN: Soft. Bowel sounds are heard. EXTREMITIES: Intact. No edema. SKIN: Without rash. NEUROLOGIC: Neurologic examination is nonfocal. LAB DATA: Reviewed. White count 6.5, hemoglobin 11.9, hematocrit 36.5, platelet count 120,000. D-dimer 6.58. PTT is 108.7. Sodium 128, potassium 3.6, chloride 93, CO2 28. Anion gap is 7. BUN and creatinine were 13 and 0.61. Calcium 8. C-reactive protein was 72.7. Albumin 3.3. N-terminal proBNP 1550. Microbiology is negative. COVID-19 testing was negative. A gallbladder ultrasound was done today. It shows unremarkable right upper quadrant ultrasound. Venous Doppler studies of the lower extremities were also negative. CTA done July 02 shows evidence of segmental and subsegmental right middle lobe pulmonary emboli. No evidence of heart strain, mild fluid overload/pulmonary vascular congestion, bilateral effusions, left greater than right, and a large hiatal hernia. Abdominal and pelvic CT scan showed a few sigmoid diverticula but no evidence of diverticulitis. In addition, there is some infiltrate or atelectasis at the lung bases. CURRENT MEDICATIONS: Current medications are reviewed. She is on Levaquin, levothyroxine, Narcan, Zofran, Protonix, Xarelto, 0.9 IV, tramadol and vitamins. ASSESSMENT: 1. Right-sided pulmonary emboli without evidence of lower extremity deep venous thrombosis. 2. History of hypertension. 3. Hypothyroidism. 4. Profound weakness, which was the patient's presenting complaint, of unclear etiology, presumably secondary to pulmonary embolism. 5. Macular degeneration. 6. Previous thyroidectomy. 7. Prior tobacco use. PLAN: Currently the patient is on IV heparin. We will see if we can get her on a factor Xa inhibitor. If her insurance will not cover it, she will need Coumadin therapy. She can be bridged with Lovenox until she is therapeutic. Additional recommendations and suggestions are forthcoming. Will continue to follow. Prognosis is guarded, given her age. MMODL / IJN: [id number] / MTDD
[2020-07-03] MEDS: HEPARIN SOD,PORK IN 0.45% NACL 25,000 UNIT in 0.45% NACL 1 250ML.BAG IV SCH (17:30)
[2020-07-03] MEDS: SODIUM CHLORIDE 0.9% 1,000 ML IV SCH (17:31)
--- NOTE | 2020-07-03 17:40 | P.CRDCN ---
History of Present Illness History of present illness: This is Maryuri Singh PA-C dictating a consult on this patient The patient was interviewed and examined by me as well as by Dr. Huynh Case discussed with Dr. Huynh and he agrees with the plan of care HPI Patient is an 89-year-old female with a history significant for hypertension and hypothyroidism who presented with complaints of weakness. She is a patient of Dr. Hanks. She is a somewhat poor historian. She states she was at home and she became so weak she was unable to walk to the fridge. She denies any dizziness, chest pain or shortness of breath. She denies any cough or fevers. No nausea vomiting or diarrhea. Upon arrival to the emergency department her temperature was 102.7F, pulse 64, respirations 18, blood pressure 132/56, oxygen saturation 96% on room air. EKG showed sinus mechanism with nonspecific changes inferiorly and anteriorly, rate [address] of the abdomen and pelvis showed a few sigmoid diverticula, no evidence of diverticulitis, some infiltrate and atelectasis with posterior lung bases no evidence of bowel obstruction. Chest CTA showed segmental and subsegmental branch right middle lobe pulmonary emboli, no evidence for right heart strain, and a large hiatal hernia. Venous Doppler showed no DVT. Patient was started on heparin and admitted for further evaluation and treatment. Patient seen and examined resting in bed. Continues to feel weak. Complaining of nausea. No vomiting or diarrhea. Denies any shortness of breath or cough. ROS: No fevers, chills or rigors, no cough, phlegm or expectoration, Positive for nausea, no vomiting or diarrhea, no hematuria, dysuria, no musculoskeletal complaints, no strokes or seizures, no skin lesions. EXAMINATION: Temperature 98.7F, pulse 60, respirations 17, blood pressure 125/59, oxygen saturation 95% on 2 L nasal cannula Patient seen and examined resting in bed, in no acute distress Lungs with few scattered crackles at the bases bilaterally Heart is regular, no audible murmurs No elevated JVD No lower extremity edema REVIEW OF LABS, ECG & MEDICAL DATA WBC 6.5, hemoglobin 11.9, platelets 120, potassium 3.6, BUN 13, creatinine 0.6 Troponin negative Recent Lexiscan stress test showed no evidence for reversible ischemia Recent echocardiogram showed EF 50-55%, mild MR, [id number] TR IMPRESSION / ASSESSMENT: #1 symptoms of weakness #2 subsegmental and segmental pulmonary embolism #3 hypertension, reasonably well controlled not currently on any medications #4 hypothyroidism #5 fevers PLAN: Repeat limited echocardiogram to assess cardiac function and for signs of RV strain Workup and management of pulmonary embolism per primary care team and pulmo nology Past Medical History Past Medical History: Hypertension, Thyroid Disorder Additional Past Medical History / Comment(s): macular degeneration History of Any Multi-Drug Resistant Organisms: None Reported Past Surgical History: No Surgical Hx Reported Additional Past Surgical History / Comment(s): thyroidectomy Past Anesthesia/Blood Transfusion Reactions: No Reported Reaction Past Psychological History: Anxiety Smoking Status: Former smoker Past Alcohol Use History: Occasional Past Drug Use History: None Reported - Past Family History Father History Unknown: Yes Medications and Allergies Home Medications Medication Instructions Recorded Confirmed Type Levothyroxine Sodium [Levoxyl] 100 mcg PO MOWEFRSA 05/25/15 07/01/20 History Losartan Potassium 100 mg PO DAILY 06/14/20 07/01/20 History amLODIPine [Norvasc] 10 mg PO DAILY 06/14/20 07/01/20 History Levothyroxine Sodium [Levoxyl] 50 mcg PO SUTUTH 06/16/20 07/01/20 History Metoprolol Tartrate [Lopressor] 25 mg PO BID #60 tab 06/18/20 07/01/20 Rx hydrALAZINE HCL [Apresoline] 50 mg PO TID #90 tab 06/18/20 07/01/20 Rx Vit A/Vit C/Vit E/Zinc/Copper 1 cap PO DAILY 07/01/20 07/01/20 History [ICAPS SOFTGEL] Rivaroxaban [Xarelto Starter Pack] 0 mg PO DIRECTED 30 Days #1 pack 07/03/20 Rx Allergies Allergy/AdvReac Type Severity Reaction Status Date / Time No Known Allergies Allergy Verified 07/01/20 21:53 Physical Exam Vitals: Vital Signs Temp Pulse Resp BP Pulse Ox 07/03/20 16:15 98.7 F 60 17 125/59 95 07/03/20 12:00 98.7 F 59 L 18 111/56 97 07/03/20 08:25 98.8 F 62 19 118/57 97 07/03/20 06:21 99.7 F H 07/03/20 04:00 99.1 F 63 18 126/63 92 L 07/03/20 00:00 98.4 F 55 L 18 130/61 97 07/02/20 23:34 101.7 F H 65 18 141/65 95 07/02/20 20:00 65 18 Intake and Output 07/03/20 07/03/20 07/03/20 06:59 14:59 22:59 Intake Total 91.399 52.98 0.902 Output Total 600 Balance 91.399 -547.02 0.902 Intake: Intake, IV Titration 91.399 52.98 0.902 Amount Heparin Sod,Pork in 0.45% 91.399 52.98 NaCl 25,000 unit In 0.45 % NaCl 1 250ml.bag @ 18 UNITS/KG/HR 11.594 mls/hr IV .[id number] [facility] Rx#: [id number] Heparin Sod,Pork in 0.45% 0.902 NaCl 25,000 unit In 0.45 % NaCl 1 250ml.bag @ 18 UNITS/KG/HR 12.87 mls/hr IV .[id number] [facility] Rx#: [id number] Output: Urine 600 Other: Voiding Method Bedpan # Voids 1 Weight 71.5 kg Results 07/03/20 07:28 07/03/20 07:28 Coagulation 07/02/20 07/03/20 07/03/20 Range/Units 17:01 00:13 07:28 PT 10.8 (9.0-12.0) sec APTT 22.6 >200.0 H* 108.7 H* (22.0-30.0) sec 07/03/20 Range/Units 17:01 PT (9.0-12.0) sec APTT 69.1 H (22.0-30.0) sec CBC 07/02/20 07/03/20 Range/Units 17:01 07:28 WBC 6.0 6.5 (3.8-10.6) k/uL RBC 4.13 3.92 (3.80-5.40) m/uL Hgb 13.0 11.9 (11.4-16.0) gm/dL Hct 39.7 36.5 (34.0-46.0) % Plt Count 131 L 120 L (150-450) k/uL Comprehensive Metabolic Panel 07/03/20 Range/Units 07:28 Sodium 128 L (137-145) mmol/L Potassium 3.6 (3.5-5.1) mmol/L Chloride 93 L (98-107) mmol/L Carbon Dioxide 28 (22-30) mmol/L BUN 13 (7-17) mg/dL Creatinine 0.61 (0.52-1.04) mg/dL Glucose 101 H (74-99) mg/dL Calcium 8.0 L (8.4-10.2) mg/dL Current Medications Generic Name Dose Route Start Last Admin Trade Name Freq PRN Reason Stop Dose Admin Docusate Sodium 100 mg 07/03/20 17:33 Colace PO DAILY PRN Constipation Heparin Sodium (Porcine) 0 unit 07/03/20 16:28 Heparin IV PER PROTOCOL PRN Low PTT Protocol Sodium Chloride 1,000 mls @ 20 mls/hr 07/01/20 18:15 07/03/20 17:31 Saline 0.9% IV 20 mls/hr .Q24H [facility] Administration Heparin Sodium/Sodium Chloride 250 mls @ 12.87 mls/hr 07/03/20 16:30 07/03/20 17:37 25,000 unit/ Sodium Chloride IV 8.81 units/kg/hr .[id number] [facility] 6.299 mls/hr Titration Protocol 18 UNITS/KG/HR Levofloxacin 500 mg 07/03/20 21:00 Levaquin PO Q24H [facility] Levothyroxine Sodium 50 mcg 07/03/20 06:00 07/03/20 06:18 Synthroid PO 50 mcg SUTUTH@0600 N[facility] Administration Levothyroxine Sodium 100 mcg 07/02/20 06:00 07/02/20 04:59 Synthroid PO 100 mcg MOWEFRSA@0600 [facility] Administration Multivitamins/Minerals 1 each 07/03/20 09:00 07/03/20 09:12 Ivite PO 1 each DAILY [facility] Administration Naloxone HCl 0.2 mg 07/01/20 18:06 Narcan IV Q2M PRN Opioid Reversal Ondansetron HCl 4 mg 07/01/20 18:06 Zofran IVP Q8HR PRN Nausea And Vomiting Pantoprazole Sodium 40 mg 07/04/20 07:30 Protonix PO AC-BRKFST N[facility] Tramadol HCl 50 mg 07/03/20 09:46 Ultram PO QID PRN Pain/Discomfort Intake and Output 07/03/20 07/03/20 07/03/20 06:59 14:59 22:59 Intake Total 91.399 52.98 0.902 Output Total 600 Balance 91.399 -547.02 0.902 Intake: Intake, IV Titration 91.399 52.98 0.902 Amount Heparin Sod,Pork in 0.45% 91.399 52.98 NaCl 25,000 unit In 0.45 % NaCl 1 250ml.bag @ 18 UNITS/KG/HR 11.594 mls/hr IV .[id number] [facility] Rx#: [id number] Heparin Sod,Pork in 0.45% 0.902 NaCl 25,000 unit In 0.45 % NaCl 1 250ml.bag @ 18 UNITS/KG/HR 12.87 mls/hr IV .[id number] [facility] Rx#: [id number] Output: Urine 600 Other: Voiding Method Bedpan # Voids 1 Weight 71.5 kg 07/03/20 07:28 07/03/20 07:28
[2020-07-03] MEDS: DOCUSATE 100 MG CAP PO PRN (17:43)
[2020-07-03] MEDS: LEVOFLOXACIN 500 MG TAB PO SCH (21:33)
--- NOTE | 2020-07-03 22:47 | PN ---
PROGRESS NOTE DATE OF SERVICE: 07/03/2020 REASON FOR FOLLOWUP: Fever, possibly thrombolytic versus pneumonia. INTERVAL HISTORY: The patient's overall fever pattern has improved. Last temperature was last night of 101.7 degrees Fahrenheit. The patient has been afebrile since then. The patient is breathing comfortably. Denies having any chest pain. Minimal cough. No nausea, no vomiting. No abdominal pain or diarrhea. PHYSICAL EXAMINATION: Blood pressure 125/59 with a pulse of 60, temperature 98.7. She is 95% on 2 L nasal cannula. General description is an elderly female lying in bed in no distress. RESPIRATORY SYSTEM: Unlabored breathing with decreased breath sounds at the base. No wheeze. HEART: S1, S2. Regular rate and rhythm. ABDOMEN: Soft. No tenderness. LABS: Hemoglobin 11.9, white count 6.5, BUN of 13, creatinine 0.61. Blood culture has been negative. DIAGNOSTIC IMPRESSION AND PLAN: Patient with a fever in this patient who did have evidence of pulmonary emboli bilaterally, questionably related to thromboembolic event. Underlying pneumonia less likely but not entirely excluded. The patient is covered with Levaquin; to continue. Ultrasound of the gallbladder has been negative as well. Continue with supportive care. MMODL / IJN: [id number] /
[2020-07-04] MEDS: LEVOTHYROXINE 100 MCG TAB PO SCH (06:28)
[2020-07-04] MEDS: PANTOPRAZOLE 40 MG TABLET PO SCH (06:30)
[2020-07-04 06:45] LABS: Basophils % (A) 0 %; Eosinophils # (A) 0.2 k/uL (0-0.7); Eosinophils % (A) 3 %; HCT 32.7 % (34.0-46.0); HGB 11.3 gm/dL (11.4-16.0); Lymphocytes # (A) 1.1 k/uL (1.0-4.8); Lymphocytes % (A) 15 %; MCH 31.4 pg (25.0-35.0); MCHC 34.5 g/dL (31.0-37.0); Mean Platelet Volume 7.7; Monocytes # (A) 0.4 k/uL (0-1.0); Monocytes % (A) 6 %; Neutrophils # (A) 5.2 k/uL (1.3-7.7); Neutrophils % (A) 73 %; Platelet Count 125 k/uL (150-450); RBC 3.59 m/uL (3.80-5.40); RDW 12.8 % (11.5-15.5); WBC 7.2 k/uL (3.8-10.6)
[2020-07-04 07:16] LABS: ALT 60 U/L (4-34); AST 37 U/L (14-36); African American GFR (CKD) >90 (>60 ml/min/1.73 sqM); Albumin 2.6 g/dL (3.5-5.0); Alkaline Phosphatase 104 U/L (38-126); Anion Gap 4 mmol/L; Blood Urea Nitrogen 12 mg/dL (7-17); Calcium 7.6 mg/dL (8.4-10.2); Carbon Dioxide 30 mmol/L (22-30); Chloride 94 mmol/L (98-107); Glucose 94 mg/dL (74-99); Non-African American GFR(CKD) 84 (>60 ml/min/1.73 sqM); Potassium 2.9 mmol/L (3.5-5.1); Sodium 128 mmol/L (137-145); Total Bilirubin 0.7 mg/dL (0.2-1.3); Total Protein 4.9 g/dL (6.3-8.2)
[2020-07-04] MEDS: VIT A,C & E-LUTEIN-MINERALS 1 EACH TAB PO SCH (09:21)
--- NOTE | 2020-07-04 10:23 | P.PN ---
Subjective 89-year-old female was admitted secondary to pulmonary embolism, patient is on IV heparin at this time. Patient is still requiring 5 L of falls and patient had an episode of acute respiratory distress after which patient was transferred to stepdown unit. Clinically there is no evidence of CHF and patient is hyponatremic on this can you Lasix. Cardiology will evaluate the patient patient had a normal ejection fraction and recent echocardiogram did patient has mildly elevated liver enzymes etiology of which is not clear will obtain ultrasound of the liver as well as a hepatitis panel. We'll repeat liver enzymes again tomorrow and any his stamina for and-based medications will be discontinued.. Patient doesn't feel good and she feels tired. 07/04/2020 Patient will be evaluated for qualification for [employer].. Patient is feeling much better today. Patient is hyponatremic because of the Lasix she received. Echocardiac exam within normal limits liver enzymes are improving. Hepatitis panel is negative ultrasound of the liver is negative. Constitutional: Denied any fatigue denied any fever. Cardio vascular: denied any chest pain, palpitations Gastrointestinal denied any nausea vomiting Pulmonary: Shortness of breath resolved Neurologic denied any new focal deficits All inpatient medications were reviewed and appropriate changes in these medications as dictated in the interval history and assessment and plan. Objective - Vital Signs Vital signs: Vital Signs Temp 97.9 F 07/04/20 08:00 Pulse 66 07/04/20 08:00 Resp 16 07/04/20 08:00 BP 116/55 07/04/20 08:00 Pulse Ox 95 07/04/20 08:00 Intake & Output 07/03/20 07/04/20 07/04/20 18:59 06:59 18:59 Intake Total 173.882 540 Output Total 600 0 400 Balance -426.118 0 140 Weight 70.7 kg Intake: Intake, IV Titration 53.882 Amount Heparin Sod,Pork in 0.45% 52.98 NaCl 25,000 unit In 0.45 % NaCl 1 250ml.bag @ 18 UNITS/KG/HR 11.594 mls/hr IV .[id number] [facility] Rx#: [id number] Heparin Sod,Pork in 0.45% 0.902 NaCl 25,000 unit In 0.45 % NaCl 1 250ml.bag @ 18 UNITS/KG/HR 12.87 mls/hr IV .[id number] [facility] Rx#: [id number] Oral 120 540 Output: Urine 600 0 400 Other: Voiding Method Bedpan # Voids 1 - Exam PHYSICAL EXAMINATION: GENERAL: The patient is alert and oriented x3, not in any acute distress. Well developed, well nourished. HEENT: Pupils are round and equally reacting to light. EOMI. No scleral icterus. No conjunctival pallor. Normocephalic, atraumatic. No pharyngeal erythema. No thyromegaly. CARDIOVASCULAR: S1 and S2 present. No murmurs, rubs, or gallops. PULMONARY: Chest is clear to auscultation, no wheezing or crackles. ABDOMEN: Soft, nontender, nondistended, normoactive bowel sounds. No palpable organomegaly. MUSCULOSKELETAL: No joint swelling or deformity. EXTREMITIES: No cyanosis, clubbing, or pedal edema. NEUROLOGICAL: Gross neurological examination did not reveal any focal deficits. SKIN: No rashes. - Labs CBC & Chem 7: 07/04/20 06:25 07/04/20 06:25 Labs: Abnormal Lab Results - Last 24 Hours (Table) 07/03/20 07/03/20 07/03/20 Range/Units 07:28 17:01 23:09 RBC (3.80-5.40) m/uL Hgb (11.4-16.0) gm/dL Hct (34.0-46.0) % Plt Count (150-450) k/uL APTT 69.1 H 63.5 H (22.0-30.0) sec Sodium (137-145) mmol/L Potassium (3.5-5.1) mmol/L Chloride (98-107) mmol/L Calcium (8.4-10.2) mg/dL AST (14-36) U/L ALT (4-34) U/L Total Protein (6.3-8.2) g/dL Albumin (3.5-5.0) g/dL Procalcitonin 0.25 H (0.02-0.09) ng/mL 07/04/20 07/04/20 07/04/20 Range/Units 06:25 06:25 06:27 RBC 3.59 L (3.80-5.40) m/uL Hgb 11.3 L (11.4-16.0) gm/dL Hct 32.7 L (34.0-46.0) % Plt Count 125 L (150-450) k/uL APTT 44.7 H (22.0-30.0) sec Sodium 128 L (137-145) mmol/L Potassium 2.9 L (3.5-5.1) mmol/L Chloride 94 L (98-107) mmol/L Calcium 7.6 L (8.4-10.2) mg/dL AST 37 H (14-36) U/L ALT 60 H (4-34) U/L Total Protein 4.9 L (6.3-8.2) g/dL Albumin 2.6 L (3.5-5.0) g/dL Procalcitonin (0.02-0.09) ng/mL Microbiology - Last 24 Hours (Table) 07/01/20 16:09 Blood Culture - Preliminary Blood No Growth after 48 hours Assessment and Plan Plan: -Acute hypoxic respiratory failure: Secondary to pulmonary embolism and patient will be continued on IV heparin, pulmonology evaluated the patient is a possibility of atypical pneumonia possibility of COVID19 is is low and patient is on levofloxacin at this time. -Acute PE -Possible atypical pneumonia, continue with levofloxacin -Rule out Covid 19 -Elevated transaminases: Improving -Hypovolemic hyponatremia secondary to Lasix, remained stable at 128. -Hyperthyroidism -Hypertension patient is presently hypotensive antiemesis medications are being held
[2020-07-04] MEDS ORDERED: Potassium Replacement Protocol 1 EACH MISC MISCELLANE PRN (11:37)
[2020-07-04 11:38] LABS: Prothrombin Time 10.5 sec (9.0-12.0)
[2020-07-04] MEDS: POTASSIUM CHLORIDE ER 20 MEQ TAB.ER PO SCH ×3 (11:45→15:58)
--- NOTE | 2020-07-04 12:50 | P.PN ---
Subjective Progress Note Date: 07/04/20 Principal diagnosis: Right-sided pulmonary emboli, without evidence of lower extremity deep venous thrombosis On 07/04/2020 patient seen in follow-up on selective care unit, she remains on heparin infusion for no pulmonary embolism, lower extremity DVTs were ruled out. Echocardiogram showed preserved LV function with EF of 50-55%, mild pulmonary hypertension with right-sided pressures at 43 mmHg, hemodynamically patient has remained stable, no compressive shortness of breath, no complaints of chest pain, she is on 2 L of oxygen the pulse ox of 96%, respirations are nonlabored, but pressure is 116/58. Patient really has no prescription coverage, and yesterday discharge planning checked her Xa inhibitor [id number] cost and it would cost her $750 per month [id number] for Xarelto. Patient will be started on Coumadin today, and apparently she has no coverage for Lovenox. Denies any nausea vomiting, patient continues on Levaquin for possibility of pneumonia, though this felt to be less likely. Ultrasound of gallbladder was negative. Objective - Vital Signs Vital signs: Vital Signs Temp 97.9 F 07/04/20: Pulse 58 L 07/04/20 11:45 Resp 16 07/04/20 11:45 BP 110/58 07/04/20 11:44 Pulse Ox 96 07/04/20 11:44 Intake & Output 07/03/20 07/04/20 07/04/20 18:59 06:59 18:59 Intake Total 173.882 540 Output Total 600 0 400 Balance -426.118 0 140 Weight 70.7 kg Intake: Intake, IV Titration 53.882 Amount Heparin Sod,Pork in 0.45% 52.98 NaCl 25,000 unit In 0.45 % NaCl 1 250ml.bag @ 18 UNITS/KG/HR 11.594 mls/hr IV .[id number] [facility] Rx#: [id number] Heparin Sod,Pork in 0.45% 0.902 NaCl 25,000 unit In 0.45 % NaCl 1 250ml.bag @ 18 UNITS/KG/HR 12.87 mls/hr IV .[id number] [facility] Rx#: [id number] Oral 120 540 Output: Urine 600 0 400 Other: Voiding Method Bedpan Bedpan # Voids 1 - Exam GENERAL EXAM: Alert, very pleasant, 89-year-old white female, on 2 L of oxygen pulse ox of 96% comfortable in no apparent distress. HEAD: Normocephalic/atraumatic. EYES: Normal reaction of pupils, equal size. Conjunctiva pink, sclera white. NOSE: Clear with pink turbinates. THROAT: No erythema or exudates. NECK: No masses, no JVD, no thyroid enlargement, no adenopathy. CHEST: No chest wall deformity. Symmetrical expansion. LUNGS: Equal air entry with no crackles, wheeze, rhonchi or dullness. CVS: Regular rate and rhythm, normal S1 and S2, no gallops, no murmurs, no rubs ABDOMEN: Soft, nontender. No hepatosplenomegaly, normal bowel sounds, no guarding or rigidity. EXTREMITIES: No clubbing, no edema, no cyanosis, 2+ pulses and upper and lower extremities. MUSCULOSKELETAL: Muscle strength and tone normal. SPINE: No scoliosis or deformity SKIN: No rashes CENTRAL NERVOUS SYSTEM: Alert and oriented -3. No focal deficits, tone is normal in all 4 extremities. PSYCHIATRIC: Alert and oriented -3. Appropriate affect. Intact judgment and insight. - Labs CBC & Chem 7: 07/04/20 06:25 07/04/20 06:25 Labs: Abnormal Lab Results - Last 24 Hours (Table) 07/03/20 07/03/20 07/03/20 Range/Units 07:28 17:01 23:09 RBC (3.80-5.40) m/uL Hgb (11.4-16.0) gm/dL Hct (34.0-46.0) % Plt Count (150-450) k/uL APTT 69.1 H 63.5 H (22.0-30.0) sec Sodium (137-145) mmol/L Potassium (3.5-5.1) mmol/L Chloride (98-107) mmol/L Calcium (8.4-10.2) mg/dL AST (14-36) U/L ALT (4-34) U/L Total Protein (6.3-8.2) g/dL Albumin (3.5-5.0) g/dL Procalcitonin 0.25 H (0.02-0.09) ng/mL 07/04/20 07/04/20 07/04/20 Range/Units 06:25 06:25 06:27 RBC 3.59 L (3.80-5.40) m/uL Hgb 11.3 L (11.4-16.0) gm/dL Hct 32.7 L (34.0-46.0) % Plt Count 125 L (150-450) k/uL APTT 44.7 H (22.0-30.0) sec Sodium 128 L (137-145) mmol/L Potassium 2.9 L (3.5-5.1) mmol/L Chloride 94 L (98-107) mmol/L Calcium 7.6 L (8.4-10.2) mg/dL AST 37 H (14-36) U/L ALT 60 H (4-34) U/L Total Protein 4.9 L (6.3-8.2) g/dL Albumin 2.6 L (3.5-5.0) g/dL Procalcitonin (0.02-0.09) ng/mL Microbiology - Last 24 Hours (Table) 07/01/20 16:09 Blood Culture - Preliminary Blood No Growth after 48 hours Assessment and Plan Plan: Assessment: #1. Right-sided pulmonary emboli without evidence of lower extremity DVTs #2. History of hypertension #3. Hypothyroidism #4. Possibility of underlying pneumonia is not entirely excluded although felt to be less likely #5. Covid 19 ruled out #6. Elevated transaminases, improving #7. Hypothyroidism #8. Hypovolemic hyponatremia, diuretics on hold #9. Hypertension Plan: Patient is doing well, her Xa inhibitor was not covered patient has no pr escription coverage, occluding for Coumadin and Lovenox. Start the patient on Coumadin, continue heparin infusion for a bridge. Echocardiogram results have been noted, hemodynamic patient has remained stable, no worsening dyspnea, no complaints of chest pain or hemoptysis. Continue oral antibiotics bronchodilators. Increase activity as tolerated, I performed a history & physical examination of the patient and discussed their management with my nurse practitioner, Shanika Gould. I reviewed the nurse practitioner's note and agree with the documented findings and plan of care. Lung sounds are positive for diminished breath sounds. The findings and the impression was discussed with the patient. I attest to the documentation by the nurse practitioner. Time with Patient: Less than 30
--- NOTE | 2020-07-04 15:04 | P.PN ---
Subjective This is Maryuri Singh PA-C dictating a progress note on this patient The patient was interviewed and examined by me as well as by Dr. Huynh Case discussed with Dr. Huynh and he agrees with the plan of care HPI/interval history Patient is an 89-year-old female with a history significant for hypertension and hypothyroidism who presented with complaints of weakness. She was found to have segmental and subsegmental pulmonary emboli. She is being started on Coumadin and being bridged with heparin. Patient seen and examined resting in bed. States she is feeling better today. Denies any chest pain or shortness of breath. No dizziness. EXAMINATION Temperature 97.9F, pulse 58, respirations 16, blood pressure 110/58, oxygen saturation 96% on 2 L nasal cannula Patient seen and examined resting in bed, in no acute distress, appears comfortable Lungs diminished at the bases with few scattered crackles Heart is regular, soft systolic murmur No elevated JVD No lower extremity edema REVIEW OF LABS, ECG WBC 7.2, hemoglobin 11.3, platelets 125, potassium 2.9, BUN 12, creatinine 0.56 Recent Lexiscan stress test showed no evidence for reversible ischemia Recent echocardiogram showed EF 50-55, normal RV IMPRESSION / ASSESSMENT: #1 symptoms of weakness, improving #2 subsegmental and segmental pulmonary embolism, started on Coumadin and being bridged with heparin #3 hypertension, reasonably well controlled not currently on any antihypertensive medications #4 hypothyroidism #5 fevers, possible pneumonia, on antibiotics #6 hyponatremia #7 hypokalemia PLAN: From a cardiac standpoint we will sign off and the patient may follow up outpatient with her primary chart computer upon discharge Management of electrolyte abnormalities per primary care team Workup and management of pulmonary embolism per primary care team and pulmo nology Objective - Vital Signs Vital signs: Vital Signs Temp 97.9 F 07/04/20 09: Pulse 58 L 07/04/20 11:45 Resp 16 07/04/20 11:45 BP 110/58 07/04/20 11:44 Pulse Ox 96 07/04/20 11:44 Intake & Output 07/03/20 07/04/20 07/04/20 18:59 06:59 18:59 Intake Total 173.882 540 Output Total 600 0 400 Balance -426.118 0 140 Weight 70.7 kg Intake: Intake, IV Titration 53.882 Amount Heparin Sod,Pork in 0.45% 52.98 NaCl 25,000 unit In 0.45 % NaCl 1 250ml.bag @ 18 UNITS/KG/HR 11.594 mls/hr IV .[id number] [facility] Rx#: [id number] Heparin Sod,Pork in 0.45% 0.902 NaCl 25,000 unit In 0.45 % NaCl 1 250ml.bag @ 18 UNITS/KG/HR 12.87 mls/hr IV .[id number] [facility] Rx#: [id number] Oral 120 540 Output: Urine 600 0 400 Other: Voiding Method Bedpan Bedpan # Voids 1 - Labs CBC & Chem 7: 07/04/20 06:25 07/04/20 06:25 Labs: Abnormal Lab Results - Last 24 Hours (Table) 07/03/20 07/03/20 07/03/20 Range/Units 07:28 17:01 23:09 RBC (3.80-5.40) m/uL Hgb (11.4-16.0) gm/dL Hct (34.0-46.0) % Plt Count (150-450) k/uL APTT 69.1 H 63.5 H (22.0-30.0) sec Sodium (137-145) mmol/L Potassium (3.5-5.1) mmol/L Chloride (98-107) mmol/L Calcium (8.4-10.2) mg/dL AST (14-36) U/L ALT (4-34) U/L Total Protein (6.3-8.2) g/dL Albumin (3.5-5.0) g/dL Procalcitonin 0.25 H (0.02-0.09) ng/mL 07/04/20 07/04/20 07/04/20 Range/Units 06:25 06:25 06:27 RBC 3.59 L (3.80-5.40) m/uL Hgb 11.3 L (11.4-16.0) gm/dL Hct 32.7 L (34.0-46.0) % Plt Count 125 L (150-450) k/uL APTT 44.7 H (22.0-30.0) sec Sodium 128 L (137-145) mmol/L Potassium 2.9 L (3.5-5.1) mmol/L Chloride 94 L (98-107) mmol/L Calcium 7.6 L (8.4-10.2) mg/dL AST 37 H (14-36) U/L ALT 60 H (4-34) U/L Total Protein 4.9 L (6.3-8.2) g/dL Albumin 2.6 L (3.5-5.0) g/dL Procalcitonin (0.02-0.09) ng/mL Microbiology - Last 24 Hours (Table) 07/01/20 16:09 Blood Culture - Preliminary Blood No Growth after 48 hours
--- NOTE | 2020-07-04 15:32 | PN ---
PROGRESS NOTE DATE OF SERVICE: 07/04/2020 REASON FOR FOLLOWUP: Possible pneumonia. INTERVAL HISTORY: The patient is currently afebrile. The patient is feeling much better. She is breathing comfortably. The patient denies having any chest pain or shortness of breath. Did have some cough, not bringing up any sputum. No nausea, no vomiting. No abdominal pain or diarrhea. PHYSICAL EXAMINATION: Blood pressure 110/58 with a pulse of 58, temperature 97.9. She is 96% on room air. General description is an elderly female, lying in bed in no distress. RESPIRATORY SYSTEM: Unlabored breathing, clear to auscultation anteriorly. HEART: S1, S2. Regular rate and rhythm. ABDOMEN: Soft, no tenderness. LABS: White count 7.2, BUN of 12, creatinine 0.56. DIAGNOSTIC IMPRESSION AND PLAN: Patient admitted to hospital with shortness of breath, fever, did have evidence of bilateral PE, also with possible pneumonia: Responded to Levaquin will be continued and will monitor clinical course closely. Continue supportive care. MMODL / IJN: [id number] / PEPITO
[2020-07-04] MEDS: HEPARIN SOD,PORK IN 0.45% NACL 25,000 UNIT in 0.45% NACL 1 250ML.BAG IV SCH (17:22)
[2020-07-04] MEDS: SODIUM CHLORIDE 0.9% 1,000 ML IV SCH (17:23)
[2020-07-04] MEDS ORDERED: WARFARIN 10 MG TAB PO ONE (18:00)
[2020-07-04] MEDS: LEVOFLOXACIN 500 MG TAB PO SCH (20:43)
[2020-07-05 05:50] VITALS: PULSE 54
[2020-07-05] MEDS: DOCUSATE 100 MG CAP PO PRN (06:28)
[2020-07-05] MEDS: LEVOTHYROXINE 50 MCG TAB PO SCH (06:31)
[2020-07-05] MEDS: PANTOPRAZOLE 40 MG TABLET PO SCH (06:31)
[2020-07-05 06:54] LABS: Basophils % (A) 0 %; Eosinophils # (A) 0.3 k/uL (0-0.7); Eosinophils % (A) 4 %; HCT 33.8 % (34.0-46.0); HGB 11.4 gm/dL (11.4-16.0); Lymphocytes % (A) 16 %; MCHC 33.7 g/dL (31.0-37.0); MCV 92.2 fL (80.0-100.0); Mean Platelet Volume 7.5; Monocytes # (A) 0.4 k/uL (0-1.0); Monocytes % (A) 7 %; Neutrophils # (A) 4.6 k/uL (1.3-7.7); Neutrophils % (A) 71 %; Platelet Count 130 k/uL (150-450); Prothrombin Time 10.1 sec (9.0-12.0); RBC 3.67 m/uL (3.80-5.40); RDW 12.8 % (11.5-15.5); WBC 6.5 k/uL (3.8-10.6)
[2020-07-05 07:02] LABS: African American GFR (CKD) >90 (>60 ml/min/1.73 sqM); Anion Gap 5 mmol/L; Blood Urea Nitrogen 10 mg/dL (7-17); Carbon Dioxide 29 mmol/L (22-30); Chloride 97 mmol/L (98-107); Glucose 96 mg/dL (74-99); Non-African American GFR(CKD) 84 (>60 ml/min/1.73 sqM); Potassium 3.9 mmol/L (3.5-5.1); Sodium 131 mmol/L (137-145)
[2020-07-05] MEDS ORDERED: HEPARIN SODIUM,PORCINE 5,000 UNIT/ML 1 ML VIAL IV STA (07:47)
[2020-07-05] MEDS: VIT A,C & E-LUTEIN-MINERALS 1 EACH TAB PO SCH (08:53)
[2020-07-05] MEDS: HEPARIN SOD,PORK IN 0.45% NACL 25,000 UNIT in 0.45% NACL 1 250ML.BAG IV SCH (08:53)
[2020-07-05 10:20] VITALS: BP 115/55; RESP 16; TEMP 98.1
--- NOTE | 2020-07-05 10:41 | P.DS ---
Providers Date of admission: 07/01/20 18:06 Attending physician: Erick Mtz Consults: 07/02/20 13:01 Consult Physician Routine Consulting Provider: [facility] Consult Reason/Comments: new HF Do you want consulting provider notified?: Yes 07/02/20 14:59 Consult Physician Routine Consulting Provider: Red Sims Consult Reason/Comments: PE Do you want consulting provider notified?: Yes 07/02/20 15:00 Consult Physician Routine Consulting Provider: Jono Fountain Consult Reason/Comments: R/o covid Do you want consulting provider notified?: Yes Primary care physician: [facility] Course: 89-year-old female was admitted secondary to pulmonary embolism, patient is on IV heparin at this time. Patient is still requiring 5 L of falls and patient had an episode of acute respiratory distress after which patient was transferred to stepdown unit. Clinically there is no evidence of CHF and patient is hyponatremic on this can you Lasix. Cardiology will evaluate the patient patient had a normal ejection fraction and recent echocardiogram did patient has mildly elevated liver enzymes etiology of which is not clear will obtain ultrasound of the liver as well as a hepatitis panel. We'll repeat liver enzymes again tomorrow and any his stamina for and-based medications will be discontinued.. Patient doesn't feel good and she feels tired. 07/04/2020 Patient will be evaluated for qualification for [facility].. Patient is feeling much better today. Patient is hyponatremic because of the Lasix she received. Echocardiac exam within normal limits liver enzymes are improving. Hepatitis panel is negative ultrasound of the liver is negative. 07/05/2020 She is clinically doing well and will discontinue oxacillin and will ablate the patient although patient will need home care and home physical therapy patient will be discharged on bridging Lovenox and Coumadin. PHYSICAL EXAMINATION: GENERAL: The patient is alert and oriented x3, not in any acute distress. Well developed, well nourished. HEENT: Pupils are round and equally reacting to light. EOMI. No scleral icterus. No conjunctival pallor. Normocephalic, atraumatic. No pharyngeal erythema. No thyromegaly. CARDIOVASCULAR: S1 and S2 present. No murmurs, rubs, or gallops. PULMONARY: Chest is clear to auscultation, no wheezing or crackles. ABDOMEN: Soft, nontender, nondistended, normoactive bowel sounds. No palpable organomegaly. MUSCULOSKELETAL: No joint swelling or deformity. EXTREMITIES: No cyanosis, clubbing, or pedal edema. NEUROLOGICAL: Gross neurological examination did not reveal any focal deficits. SKIN: No rashes. Assessment and Plan Plan: -Acute hypoxic respiratory failure: Secondary to pulmonary embolism , patient was also treated for atypical pneumonia patient will be discharged on the 3 more days of levofloxacin and patient will be discharged on bridging Lovenox and Coumadin as mentioned above -Acute PE -Possible atypical pneumonia, continue with levofloxacin -Rule out Covid 19 -Elevated transaminases: Improved all the workup is negative -Hypovolemic hyponatremia secondary to Lasix, improved today expected to improve presently 131 -Hyperthyroidism -Hypertension and patient had was hypotensive patient is on 4 antidepressant medications all of them were discontinued. Patient blood pressure starts going up patient can be started on either discussion 10 manju and EMMANUEL inhibitor as an outpatient at a low dose Patient Condition at Discharge: Stable Plan - Discharge Summary Discharge Rx Participant: No New Discharge Prescriptions: New Warfarin [Coumadin] 5 mg PO DAILY #30 tab Enoxaparin [Lovenox] 60 mg SQ Q12H #14 syringe Levofloxacin [Levaquin] 500 mg PO Q24H #3 tab Continue Levothyroxine Sodium [Levoxyl] 100 mcg PO Levothyroxine Sodium [Levoxyl] 50 mcg PO SUTUTH Vit A/Vit C/Vit E/Zinc/Copper [ICAPS SOFTGEL] 1 cap PO DAILY Discontinued amLODIPine [Norvasc] 10 mg PO DAILY Losartan Potassium 100 mg PO DAILY hydrALAZINE HCL [Apresoline] 50 mg PO TID #90 tab Metoprolol Tartrate [Lopressor] 25 mg PO BID #60 tab Discharge Medication List Levothyroxine Sodium [Levoxyl] 100 mcg PO MOWEFRSA 05/25/15 [History] Levothyroxine Sodium [Levoxyl] 50 mcg PO SUTUTH 06/16/20 [History] Vit A/Vit C/Vit E/Zinc/Copper [ICAPS SOFTGEL] 1 cap PO DAILY 07/01/20 [History] Enoxaparin [Lovenox] 60 mg SQ Q12H #14 syringe 07/05/20 [Rx] Levofloxacin [Levaquin] 500 mg PO Q24H #3 tab 07/05/20 [Rx] Warfarin [Coumadin] 5 mg PO DAILY #30 tab 07/05/20 [Rx] Follow up Appointment(s)/Referral(s): [facility], [NON-STAFF] - Earl Bashir DO [Primary Care Provider] - 1-2 days Discharge Disposition: HOME WITH HOME HEALTH SERVICES
[2020-07-05] MEDS ORDERED: ENOXAPARIN 60 MG/0.6 ML SYRINGE SQ SCH (13:15)
--- NOTE | 2020-07-05 16:01 | P.PN ---
Progress Note - Text Progress Note Date: 07/05/20 REASON FOR FOLLOWUP: Possible pneumonia. INTERVAL HISTORY: The patient remains to be afebrile. The patient is breathing comfortably. The patient denies having any chest pain or shortness of breath. The patient did have dry cough, which has decreased in intensity. No nausea, no vomiting. No abdominal pain or diarrhea. PHYSICAL EXAMINATION: Blood pressure 115/60 with a pulse of 58, temperature 97.9. She is 96% on room air. General description is an elderly female, lying in bed in no distress. RESPIRATORY SYSTEM: Unlabored breathing, clear to auscultation anteriorly. HEART: S1, S2. Regular rate and rhythm. ABDOMEN: Soft, no tenderness. LABS: Reviewed DIAGNOSTIC IMPRESSION AND PLAN: Patient admitted to hospital with shortness of breath, fever, did have evidence of bilateral PE, also with possible pneumonia: Patient has clinical responded to oral Levaquin which should be continued for about a week to finish her course of therapy.
== END 2020-07-05 15:35 | disposition home health service (06) | DRG 175 ==
LOC: EC 15:26 → 4SSUR 18:06 → 3SCARD 07-02 16:48
PROVIDERS: ADMIT Hospitalist; ATTEND Hospitalist
DX: I26.99 Other pulmonary embolism without acute cor pulmonale (principal); J18.9 Pneumonia, unspecified organism; J96.01 Acute respiratory failure with hypoxia; E87.1 Hypo-osmolality and hyponatremia; R74.0 Nonspecific elevation of levels of transaminase and lactic acid dehydrogenase [LDH]; Z87.891 Personal history of nicotine dependence; F41.9 Anxiety disorder, unspecified; I95.9 Hypotension, unspecified; H35.30 Unspecified macular degeneration; D69.6 Thrombocytopenia, unspecified; I10 Essential (primary) hypertension; R00.1 Bradycardia, unspecified; E86.1 Hypovolemia; E87.6 Hypokalemia; E89.0 Postprocedural hypothyroidism; I27.29 Other secondary pulmonary hypertension; T50.1X5A Adverse effect of loop [high-ceiling] diuretics, initial encounter; Z20.828 Contact with and (suspected) exposure to other viral communicable diseases; Z79.01 Long term (current) use of anticoagulants; Z79.890 Hormone replacement therapy; Z79.899 Other long term (current) drug therapy
CPT/HCPCS: 36415; 71045; 71046; 71275; 74177; 76705; 80048; 80053; 80074; 81001; 82550; 83605; 83615; 83880; 84145; 84443; 84484; 85025; 85379; 85610; 85652; 85730; 86140; 87040; 87449; 93005; 93308; 93970; 96365; 96366; 99285

== ENCOUNTER → 2021-04-09 | Outpatient (CLI) | payer MEDICARE, BC ==
--- NOTE | 2021-04-09 09:14 | US ---
EXAMINATION TYPE: US carotid duplex BILAT DATE OF EXAM: 04/09/2021 COMPARISON: NONE CLINICAL HISTORY: R42 DIZZINESS AND GIDDINESS, I10 HTN. EXAM MEASUREMENTS: RIGHT: Peak Systolic Velocity (PSV) cm/sec ----- Right CCA: 56.7 ----- Right ICA: 89.7 ----- Right ECA: 91.9 ICA/CCA ratio: 1.6 RIGHT: End Diastole cm/sec ----- Right CCA: 10.6 ----- Right ICA: 24.8 ----- Right ECA: 11.7 LEFT: Peak Systolic Velocity (PSV) cm/sec ----- Left CCA: 59.0 ----- Left ICA: 83.6 ----- Left ECA: 96.5 ICA/CCA ratio: 1.4 LEFT: End Diastole cm/sec ----- Left CCA: 11.1 ----- Left ICA: 26.7 ----- Left ECA: 16.3 VERTEBRALS (direction of flow): Right Vertebral: Antegrade Left Vertebral: Antegrade Rhythm: Arrhythmia Moderate amount of plaque visualized. No elevated velocities, no significant stenosis IMPRESSION: No evidence for hemodynamically significant stenosis in the carotid arteries bilaterally. Irregular heart rate is noted. Criteria for Assigning % of Stenosis / Diameter reduction (Estimation based on the indirect measurements of the internal carotid artery velocities (ICA PSV). 1. Normal (no stenosis)=ICA PSV < 125 cm/s: ratio < 2.0: ICA EDV<40 cm/s. 2. Less than 50% stenosis=ICA PSV < 125 cm/s: ratio < 2.0: ICA EDV<40 cm/s. 3. 50 to 69% stenosis=ICA PSV of 125 to 230 cm/s: ration 2.0 ? 4.0: ICA EDV 40-100 cm/s. 4. Greater than 70% stenosis to near occlusion= ICA PSV > 230 cm/s: ratio > 4.0: ICA EDV > 100 cm/s. 5. Near occlusion= ICA PSV velocities may be low or undetectable: variable ratio and ICA EDV. 6. Total occlusion=unable to detect flow.
== END | disposition home or self-care (01) ==
LOC: RADUSWWP 07:34
PROVIDERS: ATTEND Family Medicine
DX: I49.9 Cardiac arrhythmia, unspecified (principal); I10 Essential (primary) hypertension; R42 Dizziness and giddiness
CPT/HCPCS: 93880